=== PATIENT | female | born 1945 | race Caucasian/White ===

== ENCOUNTER → 2023-12-29 15:15 | Outpatient (REF) | payer MEDICARE, OTHER, SELFPAY | LOC: HWWDC 15:15 | PROVIDERS: ATTENDING PHYSICIAN Internal Medicine | DX: Z12.31 Encounter for screening mammogram for malignant neoplasm of breast (principal) | CPT/HCPCS: 77063; 77067 ==

== ENCOUNTER 2024-01-10 16:31 | Inpatient (IN) | payer MEDICARE, OTHER, SELFPAY ==
[2024-01-10] VITALS (10 sets, daily range): BP systolic 111–145; BP diastolic 59–90; BMI 26.6; BMI 24.9
--- NOTE | 2024-01-10 12:45 | ED.GENMED ---
History of Present Illness
General
Chief Complaint: Dizziness
Source: patient and ambulance crew
Exam Limitations: none
Time Seen by Provider: 01/10/24 12:32
Nursing documentation reviewed up to this point in time: agreed with
Travel History
Have you had any contact with someone who has COVID-19?: Unable to Answer
Do you have any symptoms of coronavirus? Fever > 100 degrees, chills, cough, shortness of breath, sore throat, loss of taste or smell, muscle aches, or headache?: Unable to Answer
History of Present Illness
History of Present Illness:
78-year-old female with a past medical history of hypertension, hyperlipidemia, atrial fibrillation on Eliquis (sees Dr. Greenberg for cardiology) who presents to the emergency room from home where she lives independently in the community; she
presents via EMS for evaluation after syncopal event. Patient says that she has had mild URI symptoms for the past 2 or 3 days that she describes 'scratchy' throat, mild cough and congestion. She says that this morning she woke up and had profuse
nonbloody diarrhea x 5-10 episodes liquid stool. She says that just prior to arrival she was on the toilet having another BM and she began to feel very dizzy and she passed out. She says that she does not believe she sustained any serious injuries
but cannot really remember if she hit her head. She says she was too weak to get up and called EMS. Per EMS on arrival she had a normal blood pressure but was bradycardic in the 40s. She was given atropine x 1 mg from EMS for bradycardia. Heart
rate improved on the way to the hospital. Blood pressure stable. Here in the ED she says she has continued URI symptoms as above. She says she has had some mild cramping associated with her diarrhea this morning but no serious abdominal pain.
She has had some nausea but denies any vomiting today. She denies any chest pain. Denies any shortness of breath. She denies any fevers or chills. She denies any other complaints. She is on Eliquis for A-fib. She does not take any calcium
channel blockers or beta-blockers she says.
Past History
Past History
ED Past Medical History: Arrthythmia (Atrial fibrillation), GERD, Hypercholesterolemia and Other (benign positional vertigo)
ED Past Surgical History: Other (hernia, bladder sling)
Social History
Tobacco: Former smoker
Alcohol: None
Drug: None
Personal:
Living: with family
Employment: Employed
Family History
Family History: Other
Review of Systems
Review of Systems
All Other Systems: ROS reviewed and negative except as documented in HPI and ROS
Constitutional: Reports fatigue; Denies fever or chills
EENT: Reports sore throat and runny nose
Respiratory: Reports cough; Denies trouble breathing
Cardiac: Reports syncope; Denies chest pain, diaphoresis or palpitations
ABD/GI: Reports abdominal pain, nausea and diarrhea; Denies vomiting or bloody stools
: Denies dysuria, frequency or flank pain
Musculoskeletal: Denies neck pain or back pain
Neurological: Reports dizzy; Denies headache, weakness or numbness
Phy Exam
Physical Exam
Physical Exam:
General: Awake, alert, oriented x3; no acute distress
Head: Normocephalic, atraumatic
Eyes: Conjunctiva normal, EOMI
Throat: Airway intact, handling secretions
Neck: Trachea midline, no tenderness in the cervical spine
Back: No signs of trauma to the back or flank and no tenderness in thoracic lumbar spine
Lungs: Clear to auscultation bilaterally, no wheezing, rales, rhonchi
Heart: Regular rate and rhythm, no murmurs, gallops, or rubs; no chest wall tenderness
Abd: Soft, non distended, minimally tender across lower abdomen
Neuro: Cranial nerves grossly intact, speech fluid
Skin: no rash
Extremities: Atraumatic, no edema in the lower extremities; she has good pulses in all extremities; she can move all extremities through full range of motion without discomfort
Scores
Heart Failure Risk
Heart Failure Risk Score: Not Applicable
Heart Score for Chest Pain Patients
STEMI patient?: Not applicable
Withdrawal Assessment of Alcohol
Withdrawal Assessment Completed?: Not applicable
Course
Orders/Labs/Results
Orders:
Orders
01/10/24 12:37
ECG [Electrocardiogram (*1)] Urgent
Reason for Study: Other
Other Reason for Exam: tachycardia
EKG- Treatment ONCE
01/10/24 12:44
Electrocardiogram (*1) Urgent
Reason for Study: Syncope
CT Head W/o Iv Contrast Urgent
Comment:
Reason For Exam: syncope and collapse, ?head strike, on Eliquis
EKG- Treatment ONCE
01/10/24 12:45
0.9% Sodium Chloride 1000 ml [Nss] 1,000 ml IV BOLUS
01/10/24 12:52
STOOL [C difficile Antigen & Toxins] Urgent
RENE Source: Feces/Stool
Specimen Description:
Stool Culture Urgent
RENE Source: Feces/Stool
Specimen Description:
01/10/24 12:53
COVID-19 Antigen Urgent
Source: Nasal Swab
Complete Blood Count/With Diff Urgent
Comprehensive Metabolic Panel Urgent
Lipase Urgent
Influenza A+B Rapid Molecular Urgent
RENE Source: Nasal Swab
Specimen Description:
Abnormal Lab Results
01/10/24
12:53
RBC 3.75 L 10^6/uL
(4.20-5.40)
Hgb 11.8 L g/dL
(12.0-16.0)
Hct 34.4 L %
(37.0-47.0)
MCH 31.5 H pg
(27.0-31.0)
Absolute Neuts (auto) 6.6 H 10^3/uL
(1.4-6.5)
Absolute Monos (auto) 1.0 H 10^3/uL
(0.1-0.6)
Lymphocytes % 14.5 L %
(20.5-51.1)
Monocytes % 10.9 H %
(1.7-9.3)
Sodium 132 L mmol/L
(135-145)
BUN 21 H mg/dl
(7-17)
Total Bilirubin 1.4 H mg/dl
(0.2-1.3)
01/10/24 12:53
01/10/24 12:53
Vital Signs
Initial and Last Documented VS:
Initial Vital Signs
BP
143/90
01/10/24 12:38
Last Documented Vital Signs
Pulse Resp BP Pulse Ox
63 17 135/67 96
01/10/24 14:15 01/10/24 14:15 01/10/24 14:00 01/10/24 14:15
MDM/Problems Addressed
Differential Diagnosis Includes:
Vasovagal episode, postural syncope, dehydration, electrolyte derangement, anemia, dysrhythmia/bradycardia, valvular disease
MDM/Problems Addressed:
78-year-old female presents to the emergency room for evaluation of syncopal event and collapse in the setting of recent URI symptoms and profuse diarrhea this morning. She was bradycardic for EMS and received 1 mg of atropine prehospital. Vital
signs are normal here in the emergency room. Physical exam as above. Plan to place an IV check labs including CBC and CMP. Will send viral swabs. Will check stat EKG. Will send for CT head. Will provide some fluids. Send stool studies if able
to produce sample. Monitor closely reassess after the above.
Labs reviewed: CBC shows marginal anemia stable, CMP no clinically significant abnormalities. COVID and flu swabs negative. CT head negative for any acute pathology. Patient has remained sinus rhythm with heart rate in the 60s throughout her ED
visit. She has not had additional diarrhea here. Nevertheless given that she does live alone and had significant bradycardia to the point of receiving atropine from EMS will observe on telemetry overnight. Discussed with hospitalist for admission.
Chronic conditions affecting care:
A-fib on Eliquis which complicates her fall
*Radiology
Radiology exam reviewed: radiology read reviewed
*Pulse Oximetry
Patient hypoxic: no
*EKG
Interpreted by ED Provider?: Yes
Heart Rate: 67
Rate: normal
Rhythm: sinus
[place]: normal axis
Interval: normal interval and normal QT interval
QRS Pattern: normal QRS
Ischemia: no ischemia
*Critical Care Note
Total Time (30-74mins, 75-104mins- exclusive of procedures): Not Applicable
Data Reviewed
Review of Other/Old Records Reveals: Labs and Records
Source: patient and ambulance crew
Patient Management
Social determinants of health affecting care: Living situation (Lives alone)
Discussion with other providers: Hospitalist (Discussed with hospitalist)
Escalation/DeEscalation of care consider admission/obs:
Admission indicated
ED Attending Note
-
Portions of this chart may have been created with voice recognition software.� Occasional wrong word or��sound alike� substitutions may have occurred due to the inherent limitations of voice recognition software.
Discharge Plan
Departure
Patient Disposition: Admit
Date of Disposition: 01/10/24
Time of Disposition: 15:37
Admit to doctor: Justina
Presentation/result/management discussed w/ accepting MD/DO: Hospitalist
Discharge Problem:
Syncope, Diarrhea
Prescriptions:
No Action
meclizine 12.5 MG tablet
12.5 mg PO DAILYPRN PRN (Reason: dizziness)
ascorbic acid (vitamin C) [Vitamin C] 500 MG tablet
1,000 mg PO DAILY
fish oil-dha-epa 1 EACH capsule
2 ea PO DAILY
cholecalciferol (vitamin D3) 1,000 UNITS tablet
1,000 units PO DAILY
multivitamin with folic acid [Tab-A-Tripp] 1 TABLET tablet
1 tab PO DAILY
acetaminophen [Tylenol Extra Strength] 500 MG tablet
500 mg PO Q4HPRN PRN (Reason: mild pain) Qty: 1 0RF
alum-mag hydroxide-simeth [Mag-Al Plus] 30 ML suspension
30 ml PO QIDPRN PRN (Reason: indigestion) Qty: 1 0RF
ibuprofen 200 MG tablet
200 mg PO Q4HPRN PRN (Reason: pain/ fever)
ondansetron 4 MG tablet,disintegrating
4 mg PO TIDPRN PRN (Reason: nausea) Qty: 9 0RF
aspirin 81 mg Tablet,Delayed Release (Dr/Ec)
81 mg PO DAILY Qty: 30 0RF
ofloxacin 0.3 % drops
10 drp otic (ear) DAILY 7 Days Qty: 5 0RF
Rx Instructions:
L ear
Metamucil 3.4 gram/5.4 gram powder
1 tbsp PO DAILY Qty: 660 0RF
Preparation H(pe,cb) 0.25-88.44 % suppository
1 supp [place] DAILY PRN (Reason: hemorrhoids) Qty: 12 0RF
Referrals:
Graham Concepcion MD [Family Provider] -
Interventions
Interventions:
*General Assessment Last Done: 01/10/24 12:47
*Neglect/Abuse Screening Last Done: 01/10/24 12:47
*ED COVID-19 Vaccine History Last Done: 01/10/24 12:46
ED- Neurological Assessment Last Done: 01/10/24 12:49
ED- Cardiac Assessment Last Done: 01/10/24 12:49
ED Swallowing Screen Last Done: 01/10/24 13:07
Discharge Date and Time
Print Language: COMORAN
[2024-01-10] MEDS: NSS 1000 IV ×2 (12:58→18:11)
[2024-01-10 13:18] LABS: % Basophils 0.4 % (0-2); % Eosinophils 0.8 % (0-6); % Immature Granulocytes 0.3 % (0-0.5); % Lymphocytes 14.5 % (20.5-51.1); % Monocytes 10.9 % (1.7-9.3); % Neutrophils 73.1 % (42.2-75.2); Absolute Eosinophils 0.1 10^3/uL (0-0.7); Absolute Lymphocytes 1.3 10^3/uL (1.2-3.4); Absolute Neutrophils 6.6 10^3/uL (1.4-6.5); Hematocrit 34.4 % (37.0-47.0); Hemoglobin 11.8 g/dL (12.0-16.0); Mean Corp Hgb Conc. 34.3 g/dL (33.0-37.0); Mean Corpuscular Hgb 31.5 pg (27.0-31.0); Mean Corpuscular Volume 91.7 fL (81.0-99.0); Mean Platelet Volume 9.6 fL (7.4-10.4); Nucleated Red Blood Cells % 0 %; Platelet Count 181 10^3/uL (130-400); Red Blood Cell Count 3.75 10^6/uL (4.20-5.40); Red Cell Dist. Width 12.6 % (11.5-14.5)
[2024-01-10 13:22] LABS: COVID-19 Antigen Negative (Negative)
[2024-01-10 13:30] LABS: ALT (SGPT) 14 U/L (0-35); AST (SGOT) 25 U/L (14-36); Albumin 3.7 g/dl (3.5-5.0); Alkaline Phosphatase 98 U/L (38-126); Blood Urea Nitrogen 21 mg/dl (7-17); Calcium 9.2 mg/dl (8.4-10.2); Carbon Dioxide 27 mmol/L (22-30); Chloride 103 mmol/L (98-107); Estimated Creatinine Clearance 48 ml/min; Glucose 94 mg/dl (70-99); Lipase 84 U/L (23-300); Potassium 4.2 mmol/L (3.5-5.1); Sodium 132 mmol/L (135-145); Total Bilirubin 1.4 mg/dl (0.2-1.3); Total Protein 6.5 g/dl (6.3-8.2); eGFR > 60.00
--- NOTE | 2024-01-10 15:38 | HPS.HSE ---
Family Physician
-
Family Physician: Graham Concepcion
Chief Complaint
-
Syncopal episode at home
History of Present Illness
78 years old female came in by ambulance. Patient was having loose stools a sitting on the toilet, she felt dizzy and she suddenly passed out. Patient had symptoms of cold in the last 2 days. COVID test was negative. Per EMS on arrival, she had
normal blood pressure but was bradycardic in the 40s. She was given atropine 1 mg. Her heart rate improved. In the emergency room, her heart rate was around 60. Blood pressure was 143/90. She denies chest pain or shortness of breath. She takes
Eliquis for atrial fibrillation. She had history of bradycardia and metoprolol was discontinued. She reports allergy/cold symptoms. She took Claritin for allergy this morning. Patient also reported frequency and dysuria
Medical History
Past Medical History
Past Medical History: Reports Other (Atrial fibrillation, constipation, hypertension, hyperlipidemia, osteoporosis, vertigo)
Past Surgical History: Reports Other (No recent major surgery)
Social History
Tobacco: Non-smoker
Alcohol: None
Drug: None
Personal: Single
Living: Alone
Employment: Employed
Family History
Family History: CAD, Hypertension and Other (No history of diabetes. Her 2 cousins of breast cancer)
Allergies / Home Medications
Allergies reflects when Allergies were last updated in [facility]
Home Medications with original date entered in [facility]
Allergy/Medication List:
Allergies
Allergy/AdvReac Type Severity Reaction Status Date / Time
codeine Allergy Severe Verified 01/10/24 14:00
Nausea
Sulfa (Sulfonamide Allergy Tongue Verified 01/10/24 14:00
Antibiotics) Swelling
tetracycline [Tetracycline] Allergy Extreme Verified 01/10/24 14:00
stomach
pain
Home Medications
ascorbic acid (vitamin C) 500 mg tablet (Vitamin C) 1,000 mg PO DAILY Supplement 04/13/14
cholecalciferol (vitamin D3) 25 mcg (1,000 unit) tablet 1,000 units PO DAILY Supplement 11/19/21
multivitamin with folic acid 400 mcg tablet (Tab-A-Tripp) 1 tab PO DAILY Supplement 11/19/21
apixaban 5 mg tablet 5 mg PO BID 01/10/24
loratadine 10 mg tablet (Claritin) 10 mg PO DAILY 01/10/24
meclizine 25 mg tablet 25 mg PO TID PRN dizziness 01/10/24
omeprazole 40 mg capsule,delayed release 40 mg PO DAILY PRN gi upset 01/10/24
Review of Systems
-
History Source: Patient
A 12 point ROS was completed and negative except as noted: Yes
Constitutional: Denies Fever or Chills
EENT: Reports Runny Nose and Other (Postnasal drip); Denies Sore Throat
Respiratory: Denies Cough or Trouble Breathing
Cardiac: Denies Chest Pain or Palpitations
Abdomen/GI: Denies Abdominal Pain
: Reports Dysuria and Frequency; Denies Bleeding
Musculoskeletal: Denies Joint Pain or Muscle Stiffness
Skin: Denies Rash
Neurological: Denies Headache or Numbness
Endocrine: Denies Temp Intolerance
Hematologic/Lymphatic: Denies Bruising
Psych: Denies Panic Disorder
Physical Exam
Vital Signs
Vital Signs
Pulse Resp BP Pulse Ox
63 17 135/67 96
01/10/24 14:15 01/10/24 14:15 01/10/24 14:00 01/10/24 14:15
Physical Exam
General: Well Developed, No Apparent Distress and Comfortable
HEENT: Moist mucous membranes and Atraumatic
Respiratory: Clear
Cardiac: S1/S2 and Regular Rhythm
GI: Soft, Non Tender and Non Distended
Rectal: No Maroon Stools
Genito-urinary: No costovertebral tender
Musculoskeletal: No Clubbing, No Cyanosis and No Edema
Skin: Warm and Dry; No Jaundice
Neuro: AO x 3 and Nonfocal/grossly intact
Psych: Calm and Intact Judgment/Insight
Laboratory Results
-
01/10/24 12:53
01/10/24 12:53
Laboratory Results
Total Bilirubin 1.4 mg/dl (0.2-1.3) H 01/10/24 12:53
AST 25 U/L (14-36) 01/10/24 12:53
ALT 14 U/L (0-35) 01/10/24 12:53
Alkaline Phosphatase 98 U/L (38-126) 01/10/24 12:53
Lipase 84 U/L (23-300) 01/10/24 12:53
Impression/Plan
-
78 years old female presented with syncopal episode
Syncopal episode
Likely vasovagal precipitated by bowel movement and ongoing cold symptoms
patient denied chest pain, palpitation, headache. She has history of vertigo. Mild evidence of dehydration with high BUN and hyponatremia, will give IV fluid.
Will monitor the patient on heart monitor for 24 hours. Continue Eliquis. No head trauma. Head scan showed no acute intracranial hemorrhage.
PT/OT. Monitor vital signs and orthostatic vitals.
# Cold symptoms, acute rhinitis. Negative COVID and influenza.
Will give as needed allergy medicine for postnasal drip, Tessalon for dry cough.
No hypoxia. Lung examination is clear.
# History of frequency and dysuria. Follow-up with urine test, no fever, no leukocytosis.
# Hyponatremia, mild, will give IV fluid
# History of paroxysmal atrial fibrillation. Continue Eliquis. Monitor on telemetry.
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 Unchanged per CT finding.
# DVT prophylaxis
Total time spent to see the patient, examine the patient on the floor, review data and lab results, discuss treatment plan with patient, ER doctor, nursing staff around 75 minutes.
[2024-01-10 15:53] LABS: Urine Albumin Negative (Neg - Trace); Urine Bilirubin Negative (Negative); Urine Character Clear (Clear); Urine Color Yellow; Urine Glucose Negative (Negative); Urine Ketone Negative (Negative); Urine Leukocyte 2+ (Negative); Urine Nitrite Negative (Negative); Urine Occult Blood Negative (Negative); Urine Urobilinogen Negative (Neg - 1+)
[2024-01-10 16:04] LABS: Urine Bacteria Few (Negative); Urine Red Blood Cell 0-2 /HPF (0-2); Urine Urothelial Cell 0-2 /LPF (FEW)
[2024-01-10 17:17] LABS: Troponin I < 0.012 ng/ml
[2024-01-10] MEDS: ELIQUIS 5 MG PO (20:25)
[2024-01-10] MEDS: TYLENOL 1000 MG PO (20:26)
[2024-01-11] VITALS (7 sets, daily range): BP systolic 124–160; BP diastolic 68–96
[2024-01-11] MEDS: NSS 1000 IV (03:54)
[2024-01-11] MEDS: TYLENOL 1000 MG PO ×2 (03:54→19:29)
[2024-01-11] MEDS: ELIQUIS 5 MG PO ×2 (07:55→19:27)
--- NOTE | 2024-01-11 11:12 | W.PN.HOSP.TC ---
Addendum entered and electronically signed by Lisa Horn MD 01/11/24 14:41:
Addendum
With recent history of cold-like symptoms, and loose stools
Possible viral gastroenteritis
Currently, patient is tolerating good oral intake. C. difficile ordered
Will follow-up
End
Original Note:
Today's Communication/Plan
-
.
Assessment / Plan
Assessment / Plan
Physical Exam
General: Well Developed, No Apparent Distress and Comfortable
HEENT: Moist mucous membranes and Atraumatic
Respiratory: Clear
Cardiac: S1/S2 and Regular Rhythm
GI: Soft, Non Tender and Non Distended
Rectal: No Maroon Stools
Genito-urinary: No costovertebral tender
Musculoskeletal: No Clubbing, No Cyanosis and No Edema
Skin: Warm and Dry; No Jaundice
Neuro: AO x 3 and Nonfocal/grossly intact
Psych: Calm and Intact Judgment/Insight
78 years old female presented with syncopal episode
#Syncopal episode
Likely vasovagal precipitated by bowel movement and ongoing cold symptoms
patient denied chest pain, palpitation, headache. She has history of vertigo. Mild evidence of dehydration with high BUN and hyponatremia, s/p IV fluid.
c/w monitoring the patient on heart monitor. Continue Eliquis. No head trauma. Negative troponin. Head scan showed no acute intracranial hemorrhage.
PT/OT. Monitor vital signs and orthostatic vitals.
# Hx of abd cramps and loose stool this morning an dsame at home
No diarrhea over night per nursing
will check C diff
# Cold symptoms, acute rhinitis. Negative COVID and influenza.
c/w as needed allergy medicine for postnasal drip, Tessalon for dry cough.
No hypoxia. Lung examination is clear.
# History of frequency and dysuria. Follow-up with urine test, no fever, no leukocytosis.
# Hyponatremia, mild, will give IV fluid
# History of paroxysmal atrial fibrillation. Continue Eliquis. Monitor on telemetry.
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 Unchanged per CT finding.
# DVT prophylaxis
Total time spent to see the patient, examine the patient on the floor, review data and lab results, discuss treatment plan with patient, nursing staff around 55 minutes.
Anticipated Discharge: Within 24 hours
Subjective/Interval History
-
Date of Service: January 11, 2024
No chest pain
No sob
No abd pain
has abd cramps and loose stool this morning
Objective Data
-
Vital Signs:
Vital Signs
Temp Pulse Resp BP Pulse Ox
97.5 F 58 18 144/71 96
01/11/24 11:00 01/11/24 11:00 01/11/24 11:00 01/11/24 11:00 01/11/24 11:00
--- NOTE | 2024-01-11 12:19 | PTOTSP ---
Patient demonstrates safe and independent mobility, no skilled PT needs at this time.
[2024-01-11] MEDS: NSS IV (12:55)
--- NOTE | 2024-01-11 15:12 | PTOTSP ---
Pt is functionally independent in room for ADLs and functional transfers/mobility. OT to sign off at this time.
[2024-01-11] MEDS: ZYRTEC 10 MG PO (19:27)
[2024-01-12] VITALS (7 sets, daily range): BP systolic 134–157; BP diastolic 65–96; PULSE 105–113
[2024-01-12] MEDS: TYLENOL 1000 MG PO ×3 (05:17→20:34)
[2024-01-12 06:00] LABS: Hematocrit 37.9 % (37.0-47.0); Hemoglobin 13.1 g/dL (12.0-16.0); Mean Corp Hgb Conc. 34.6 g/dL (33.0-37.0); Mean Corpuscular Volume 92.4 fL (81.0-99.0); Mean Platelet Volume 9.8 fL (7.4-10.4); Platelet Count 203 10^3/uL (130-400); Red Cell Dist. Width 12.4 % (11.5-14.5); White Blood Cell Count 10.7 10^3/uL (4.8-10.8)
[2024-01-12 06:25] LABS: Blood Urea Nitrogen 20 mg/dl (7-17); Calcium 9.4 mg/dl (8.4-10.2); Carbon Dioxide 23 mmol/L (22-30); Chloride 107 mmol/L (98-107); Estimated Creatinine Clearance 43 ml/min; Glucose 90 mg/dl (70-99); Potassium 4.1 mmol/L (3.5-5.1); Sodium 137 mmol/L (135-145); eGFR > 60.00
[2024-01-12] MEDS: ELIQUIS 5 MG PO ×2 (10:43→20:29)
--- NOTE | 2024-01-12 12:43 | CM ---
Met with pt at bedside
Lives alone in a 2 story home with FF set up
Independent with ADL's, shopping, cooking
DME - denies usw/in home
SNF - denies past
HH - denies past
Has ride at d/c
PCP - Dr Gaby Concepcion
Pharm - [facility]
Cleared by PT for d/c needs
Plan - anticipate home no needs
[2024-01-12] MEDS: STERILE WATER FOR INJECTION 10 ML IV (13:15)
[2024-01-12] MEDS: ROCEPHIN 1000 MG IV (13:16)
--- NOTE | 2024-01-12 13:20 | W.PN.HOSP.TC ---
Today's Communication/Plan
-
start abx
f/u cultures
stop meclizine
Assessment / Plan
Assessment / Plan
Physical Exam
General: Well Developed, No Apparent Distress and Comfortable
HEENT: Moist mucous membranes and Atraumatic
Respiratory: Clear
Cardiac: S1/S2 and Regular Rhythm
GI: Soft, Non Tender and Non Distended
Rectal: No Maroon Stools
Genito-urinary: No costovertebral tender
Musculoskeletal: No Clubbing, No Cyanosis and No Edema
Skin: Warm and Dry; No Jaundice
Neuro: AO x 3 and Nonfocal/grossly intact
Psych: Calm and Intact Judgment/Insight
78 years old female presented with syncopal episode
#Syncopal episode
Likely vasovagal precipitated by bowel movement and ongoing cold symptoms although patient has UTI symptoms and may be contributing factor
-c/w monitoring the patient on heart monitor. Continue Eliquis. No head trauma. Negative troponin. Head scan showed no acute intracranial hemorrhage.
-Orthostatics negative
-Diarrhea resolved
-PT/OT. Monitor vital signs and orthostatic vitals.
-Treat UTI
# Hx of abd cramps and loose stool this morning and same at home
No diarrhea over night per nursing
resolved
-most likely viral gastroenteritis
# Cold symptoms, acute rhinitis. Negative COVID and influenza.
c/w as needed allergy medicine for postnasal drip, Tessalon for dry cough.
No hypoxia. Lung examination is clear.
# UTI
-start Ceftriaxone
F/u cultures
# Hyponatremia, mild, will give IV fluid
-resolved
# History of paroxysmal atrial fibrillation.
-Continue Eliquis.
- Monitor on telemetry.
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
- Unchanged per CT finding.
# DVT prophylaxis
Anticipated Discharge: Within 24 hours
Subjective/Interval History
-
Date of Service: January 12, 2024
burning with urination
Objective Data
-
Labs:
Laboratory Results
01/12/24
05:32
WBC 10.7
Hgb 13.1
Hct 37.9
Plt Count 203
Sodium 137
Potassium 4.1
Chloride 107
Carbon Dioxide 23
BUN 20 H
Creatinine 0.9
Glucose 90
Calcium 9.4
Vital Signs:
Vital Signs
Temp Pulse Resp BP Pulse Ox
98.1 F 68 17 137/69 96
01/12/24 11:00 01/12/24 11:00 01/12/24 11:00 01/12/24 11:00 01/12/24 11:00
I&O
01/11/24 01/12/24 01/13/24
06:59 06:59 06:59
Intake Total 600 / 600
Balance 600 / 600
Review of Systems
-
History Source: Patient
All other systems: Not reviewed unless documented
Physical Exam
-
General: Well Developed, Well Nourished, No Apparent Distress, Comfortable and Conversant; Negative Respiratory Distress
HEENT: Normocephalic, Atraumatic, Nose Appears Normal and Ears Appear Normal; Negative Oxygen
Respiratory: Clear to Auscultation and Non Labored Respirations; Negative Accessory Resp Muscle Use
Cardiac: Regular Rhythm and S1/S2
GI: Soft, Nontender, Nondistended and Normal Bowel Sounds
Musculoskeletal: Normal Gait & Station
Skin: Warm and Dry
Neuro: Awake, Alert, Oriented, AO x 3 and No Motor Deficits
Psych: Calm and Intact Judgement/Insight
Data Reviewed
-
CT Scan: Image personally visualized and interpreted and Report Reviewed by me
Labs: Labs Reviewed by me
--- NOTE | 2024-01-12 18:39 | PTCARENOTE ---
Patient OOb in room with steady gait. Patient has not had any bowel movements. Patient c/o slight burning with urination. UA with gram neg bacilli, physisicn notfoed, order for Rocephin. Patient made aware.
[2024-01-12] MEDS: ZYRTEC 10 MG PO (20:34)
[2024-01-13 03:05] VITALS: BP 139/76
[2024-01-13 06:17] LABS: Hemoglobin 12.5 g/dL (12.0-16.0); Mean Corp Hgb Conc. 34.7 g/dL (33.0-37.0); Mean Corpuscular Hgb 31.9 pg (27.0-31.0); Mean Corpuscular Volume 91.8 fL (81.0-99.0); Mean Platelet Volume 9.5 fL (7.4-10.4); Platelet Count 200 10^3/uL (130-400); Red Blood Cell Count 3.92 10^6/uL (4.20-5.40); Red Cell Dist. Width 12.6 % (11.5-14.5); White Blood Cell Count 8.7 10^3/uL (4.8-10.8)
[2024-01-13 06:43] LABS: Blood Urea Nitrogen 18 mg/dl (7-17); Calcium 9.5 mg/dl (8.4-10.2); Carbon Dioxide 26 mmol/L (22-30); Chloride 102 mmol/L (98-107); Estimated Creatinine Clearance 48 ml/min; Glucose 90 mg/dl (70-99); Potassium 4.2 mmol/L (3.5-5.1); Sodium 136 mmol/L (135-145); eGFR > 60.00
[2024-01-13 07:00] VITALS: BP 159/84
[2024-01-13] MEDS: ELIQUIS 5 MG PO (09:09)
[2024-01-13] MEDS: TYLENOL 1000 MG PO (09:10)
[2024-01-13 10:16] VITALS: BP 145/117
--- NOTE | 2024-01-13 11:03 | W.PN.HOSP.TC ---
Addendum entered and electronically signed by Arash Rubio MD 01/13/24 16:41:
[id number]
Original Note:
Today's Communication/Plan
-
Augmentin to complete 5 days of abx
f/u pcp, gi outpatient
Assessment / Plan
Assessment / Plan
Physical Exam
General: Well Developed, No Apparent Distress and Comfortable
HEENT: Moist mucous membranes and Atraumatic
Respiratory: Clear
Cardiac: S1/S2 and Regular Rhythm
GI: Soft, Non Tender and Non Distended
Rectal: No Maroon Stools
Genito-urinary: No costovertebral tender
Musculoskeletal: No Clubbing, No Cyanosis and No Edema
Skin: Warm and Dry; No Jaundice
Neuro: AO x 3 and Nonfocal/grossly intact
Psych: Calm and Intact Judgment/Insight
78 years old female presented with syncopal episode
#Syncopal episode
Likely vasovagal precipitated by bowel movement and ongoing cold symptoms although patient has UTI symptoms and may be contributing factor
-c/w monitoring the patient on heart monitor. Continue Eliquis. No head trauma. Negative troponin. Head scan showed no acute intracranial hemorrhage.
-Orthostatics negative
-Diarrhea resolved
-PT/OT. Monitor vital signs and orthostatic vitals.
-Treat UTI
# Hx of abd cramps and loose stool this morning and same at home
No diarrhea over night per nursing
resolved
-most likely viral gastroenteritis
-FF/u GI outpatient
# Cold symptoms, acute rhinitis. Negative COVID and influenza.
c/w as needed allergy medicine for postnasal drip, Tessalon for dry cough.
No hypoxia. Lung examination is clear.
# UTI, Klebsiella Pneumoniae
-Ceftriaxone - switch to Augmentin to complete 5 day course of abx
# Hyponatremia, mild, will give IV fluid
-resolved
# History of paroxysmal atrial fibrillation.
-Continue Eliquis.
- Monitor on telemetry.
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
- Unchanged per CT finding.
# DVT prophylaxis
More than 30 minutes spent in discharge including
Final examination of the patient
Summarizing hospital stay
Instructions for continuing care to all relevant caregivers
Preparation of discharge records, prescriptions, and referral forms
Total time spent (35 in minutes):
Anticipated Discharge: Today
Subjective/Interval History
-
Date of Service: January 13, 2024
feeling better, dysuria improved
Objective Data
-
Labs:
Laboratory Results
01/13/24
05:53
WBC 8.7
Hgb 12.5
Hct 36.0 L
Plt Count 200
Sodium 136
Potassium 4.2
Chloride 102
Carbon Dioxide 26
BUN 18 H
Creatinine 0.8
Glucose 90
Calcium 9.5
Vital Signs:
Vital Signs
Temp Pulse Resp BP Pulse Ox
98.6 F 85 17 145/117 96
01/13/24 07:00 01/13/24 10:16 01/13/24 07:00 01/13/24 10:16 01/13/24 07:00
I&O
01/12/24 01/13/24 01/14/24
06:59 06:59 06:59
Intake Total 600 / 600 1160 / 1160
Balance 600 / 600 1160 / 1160
Review of Systems
-
History Source: Patient
All other systems: Not reviewed unless documented
Physical Exam
-
General: Well Developed, Well Nourished, No Apparent Distress, Comfortable and Conversant; Negative Respiratory Distress
HEENT: Normocephalic, Atraumatic, Nose Appears Normal and Ears Appear Normal; Negative Oxygen
Respiratory: Clear to Auscultation and Non Labored Respirations; Negative Accessory Resp Muscle Use
Cardiac: Regular Rhythm and S1/S2
GI: Soft, Nontender, Nondistended and Normal Bowel Sounds
Musculoskeletal: Normal Gait & Station
Skin: Warm and Dry
Neuro: Awake, Alert, Oriented, AO x 3 and No Motor Deficits
Psych: Calm and Intact Judgement/Insight
--- NOTE | 2024-01-13 11:07 | W.DS.TRANS ---
DC Summary - Help Desk Analyst
-
Discharge Instructions:
Sleep Apnea Risk Low
Discharge Diagnosis/Procedures #Syncopal episode
# UTI
#URI
#Diarrhea
Diet Low Fiber
Activity As tolerated
Instructions:
Stand-Alone Forms:
Changes to Home Medications: Yes
Discharge Medications:
DC Medications w/original date entered in [facility]
ascorbic acid (vitamin C) 500 mg tablet (Vitamin C) 1,000 mg PO DAILY Supplement 04/13/14
cholecalciferol (vitamin D3) 25 mcg (1,000 unit) tablet 1,000 units PO DAILY Supplement 11/19/21
multivitamin with folic acid 400 mcg tablet (Tab-A-Tripp) 1 tab PO DAILY Supplement 11/19/21
apixaban 5 mg tablet 5 mg PO BID Blood Clot Prevention/Tx 01/10/24
loratadine 10 mg tablet (Claritin) 10 mg PO DAILY Allergies 01/10/24
omeprazole 40 mg capsule,delayed release 40 mg PO DAILY PRN gi upset 01/10/24
amoxicillin 875 mg-potassium clavulanate 125 mg tablet 1 tab PO Q12H 4 days #8 tabs 01/13/24
Home Medication Changes
amoxicillin 875 mg-potassium clavulanate 125 mg tablet 1 tab PO Q12H 4 days #8 tabs 01/13/24
Pending Results: No
[2024-01-13 11:12] VITALS: BP 146/88
[2024-01-13] MEDS: STERILE WATER FOR INJECTION 10 ML IV (12:00)
[2024-01-13] MEDS: ROCEPHIN 1000 MG IV (12:00)
== END 2024-01-13 14:52 | disposition home or self-care (01) | DRG 392 ==
LOC: 3 WEST ACU 16:31
PROVIDERS: ADMITTING PHYSICIAN Internal Medicine; ATTENDING PHYSICIAN Internal Medicine; EMERGENCY PHYSICIAN Emergency Medicine; FAMILY PHYSICIAN Internal Medicine
DX: A08.4 Viral intestinal infection, unspecified (principal); E87.1 Hypo-osmolality and hyponatremia; N39.0 Urinary tract infection, site not specified; I10 Essential (primary) hypertension; I48.0 Paroxysmal atrial fibrillation; J06.9 Acute upper respiratory infection, unspecified; M81.0 Age-related osteoporosis without current pathological fracture; I25.10 Atherosclerotic heart disease of native coronary artery without angina pectoris; K21.9 Gastro-esophageal reflux disease without esophagitis; E86.0 Dehydration; D32.9 Benign neoplasm of meninges, unspecified; E78.00 Pure hypercholesterolemia, unspecified; B96.1 Klebsiella pneumoniae [K. pneumoniae] as the cause of diseases classified elsewhere; Z79.01 Long term (current) use of anticoagulants; Z87.891 Personal history of nicotine dependence; Z11.52 Encounter for screening for COVID-19; Z79.82 Long term (current) use of aspirin; Z88.1 Allergy status to other antibiotic agents; Z88.5 Allergy status to narcotic agent; Z88.2 Allergy status to sulfonamides
CPT/HCPCS: 70450; 80048; 80053; 81003; 81015; 83690; 84484; 85025; 85027; 87045; 87046; 87077; 87086; 87186; 87427; 87502; 87798; 87811; 93005; 96360; 97162; 99285

== ENCOUNTER 2024-03-07 15:33 | Emergency (ER) | payer MEDICARE, OTHER, SELFPAY ==
[2024-03-07] VITALS (12 sets, daily range): BP systolic 98–158; BP diastolic 62–103; BMI 24.5
[2024-03-07 16:14] LABS: % Basophils 0.4 % (0-2); % Eosinophils 0.4 % (0-6); % Immature Granulocytes 0.3 % (0-0.5); % Monocytes 7.7 % (1.7-9.3); % Neutrophils 79.2 % (42.2-75.2); Absolute Lymphocytes 1.4 10^3/uL (1.2-3.4); Absolute Monocytes 0.9 10^3/uL (0.1-0.6); Hematocrit 38.2 % (37.0-47.0); Hemoglobin 12.9 g/dL (12.0-16.0); Mean Corp Hgb Conc. 33.8 g/dL (33.0-37.0); Mean Corpuscular Hgb 31.9 pg (27.0-31.0); Mean Corpuscular Volume 94.6 fL (81.0-99.0); Mean Platelet Volume 9.7 fL (7.4-10.4); Nucleated Red Blood Cells % 0 %; Platelet Count 163 10^3/uL (130-400); Red Blood Cell Count 4.04 10^6/uL (4.20-5.40); Red Cell Dist. Width 12.2 % (11.5-14.5); White Blood Cell Count 11.4 10^3/uL (4.8-10.8)
--- NOTE | 2024-03-07 16:15 | ED.GENMED ---
History of Present Illness
General
Chief Complaint: Musculo-Skeletal Complaint
Source: patient
Exam Limitations: none
Time Seen by Provider: 03/07/24 15:53
Travel History
Have you had any contact with someone who has COVID-19?: No
Do you have any symptoms of coronavirus? Fever > 100 degrees, chills, cough, shortness of breath, sore throat, loss of taste or smell, muscle aches, or headache?: No
History of Present Illness
History of Present Illness:
78-year-old female sudden onset of upper posterior back pain to the neck with some tightness in the neck anteriorly jaw pain and ear pain bilaterally. This feels moderately improved now. Started about an hour and a half ago. No chest pain or
shortness of breath. No diaphoresis. No syncope. No history of similar pain.
Past History
Past History
ED Past Medical History: Arrthythmia (Atrial fibrillation), GERD, HTN, Hypercholesterolemia and Other (benign positional vertigo)
ED Past Surgical History: Other (hernia, bladder sling)
Social History
Tobacco: Former smoker
Alcohol: None
Drug: None
Personal:
Living: with family
Employment: Employed
Family History
Family History: Other
Review of Systems
Review of Systems
All Other Systems: Not applicable
Constitutional: Denies fever
Respiratory: Reports no symptoms
Cardiac: Reports no symptoms
Phy Exam
Physical Exam
Physical Exam:
GENERAL: Alert and oriented in no apparent distress
EYE: Orbits normal.
NECK: Supple, no significant adenopathy. No carotid bruit. I question some mild left neck swelling but appears normal.
ENT: Pharynx without erythema
CARDIAC: Regular rate and rhythm without any obvious murmurs.
LUNGS: Clear breath sounds,normal
ABDOMEN: Soft, without focal tenderness or distention
NEUROLOGICAL: Alert and oriented , grossly non-focal. Speech normal. Cranial nerves II through XII intact.
SKIN: Warm and dry, no rash or lesion, no discoloration, skin intact.
MUSCULOSKELETAL: No edema,no deformity.Good color
PSYCH: Normal and appropriate interaction.
Course
Orders/Labs/Results
Orders:
Orders
03/07/24 15:41
EKG [Electrocardiogram (*1)] Urgent
Reason for Study: Other
Other Reason for Exam: nausea, neck pain
EKG- Treatment ONCE
03/07/24 16:02
Complete Blood Count/With Diff Urgent
Comprehensive Metabolic Panel Urgent
PT/INR [Prothrombin Time] Urgent
Troponin I Urgent
03/07/24 16:15
CT Head W/o Iv Contrast Urgent
Comment:
Reason For Exam: Sudden upper neck pain to the jaw with visual rowe
CT Neck Angio W/wo Iv Contrast Urgent
Comment:
Reason For Exam: Sudden upper neck pain to the jaw with visual rowe
03/07/24 17:04
Ondansetron Injectable [Zofran] 4 mg .ROUTE .STK-MED ONE
03/07/24 17:06
Ondansetron Injectable [Zofran] 4 mg IV NOW STA
03/07/24 18:40
Type+Screen Urgent
03/07/24 18:44
Prothrombin Complex(Pcc),Human [Kcentra] 3,234 unit Empty Viaflex Container 100 ml [Viaflex Empty Container] 120 ml IV NOW
03/07/24 18:51
Esmolol 2500 mg/250 ml [Brevibloc 2500 mg] 2,500 mg in 250 ml IV NOW
Initial dose in mcg/kg/min, then titrate:: 25
Titrate to keep:: SBP 100 - 120 mmHg
Titrate by mcg/kg/min:: 25-50 mcg/kg/min
Frequency of titrations (minutes):: 5
Maximum dose in mcg/kg/min:: 300
Begin to taper infusion when:: Remained at goal for 4hrs
Taper by mcg/kg/min:: 25-50 mcg/kg/min
Frequency of taper (minutes) if patient maintains goal:: 30
Taper to off?: Yes
If infusion off & no longer maintaining goal:: Contact Provider
03/07/24 19:16
Esmolol [Brevibloc] 15 mg IV NOW STA
Abnormal Lab Results
03/07/24
16:02
WBC 11.4 H 10^3/uL
(4.8-10.8)
RBC 4.04 L 10^6/uL
(4.20-5.40)
MCH 31.9 H pg
(27.0-31.0)
Absolute Neuts (auto) 9.0 H 10^3/uL
(1.4-6.5)
Absolute Monos (auto) 0.9 H 10^3/uL
(0.1-0.6)
Neutrophils % 79.2 H %
(42.2-75.2)
Lymphocytes % 12.0 L %
(20.5-51.1)
PT 17.5 H Sec
(11.4-14.6)
Sodium 134 L mmol/L
(135-145)
BUN 18 H mg/dl
(7-17)
Glucose 113 H mg/dl
(70-99)
Total Bilirubin 1.4 H mg/dl
(0.2-1.3)
03/07/24 16:02
03/07/24 16:02
Vital Signs
Initial and Last Documented VS:
Initial Vital Signs
Temp Pulse Resp BP Pulse Ox
97.9 F 64 18 98/74 97
03/07/24 15:36 03/07/24 15:36 03/07/24 15:36 03/07/24 15:36 03/07/24 15:36
Last Documented Vital Signs
Temp Pulse Resp BP Pulse Ox
97.9 F 63 16 158/79 98
03/07/24 15:36 03/07/24 19:20 03/07/24 19:15 03/07/24 19:20 03/07/24 19:06
MDM/Problems Addressed
Differential Diagnosis Includes:
Sudden onset of the symptoms. Differential would include cardiac. Clinically have a low suspicion however cardiac workup in progress. Aortic dissection or neck dissection would be on the differential. Reviewed with radiology. Also reviewed with
CT techs. Feel a CT of the neck which would include the arch ascending aorta and part of the descending aorta is most appropriate. Workup in progress.
*Critical Care Note
Total Time (30-74mins, 75-104mins- exclusive of procedures): 75
Data Reviewed
Review of Other/Old Records Reveals: Labs and Testing
Update Note
Update Note:
Upon immediately receiving the CT report vascular surgery and cardiothoracic surgery were contacted. Patient is on Eliquis. She took it this morning. They recommended [place]. Blood pressure at that time was low. Repeat blood pressure
142/82. Kcentra ordered.
Multiple discussions with Dr. Trivedi. Esmolol drip. Agree with Kcentra. Patient's current blood pressure 140/70. Patient fully awake and alert. Family updated.
Multiple rechecks on this patient. Blood pressures mildly elevated. Esmolol has been started. Helicopter crew here now. Remains awake and alert.
Upon discharge patient clinically was stable.
cc=75
ED Attending Note
-
Portions of this chart may have been created with voice recognition software.� Occasional wrong word or��sound alike� substitutions may have occurred due to the inherent limitations of voice recognition software.
Discharge Plan
Departure
Patient Disposition: Acute [facility], [facility]
Date of Disposition: 03/07/24
Time of Disposition: 18:58
Discharge Problem:
Type a aortic dissection
Prescriptions:
No Action
ascorbic acid (vitamin C) [Vitamin C] 500 MG tablet
1,000 mg PO DAILY
multivitamin with folic acid [Tab-A-Tripp] 1 TABLET tablet
1 tab PO DAILY
omeprazole 40 mg Capsule,Delayed Release(Dr/Ec)
40 mg PO DAILY
apixaban 5 mg Tablet
5 mg PO BID
meclizine 25 mg Tablet
25 mg PO TID PRN (Reason: vertigo)
cholecalciferol (vitamin D3) 25 mcg (1,000 unit) Tablet
25 mcg PO DAILY
Referrals:
Graham Concepcion MD [Family Provider] -
Hospital Transfer
[facility]
I certify that the patient requires transfer: Yes
Discussed case with accepting physician: leena
Reason for transfer: higher level of care
Interventions
Interventions:
*Risk Screen - Suicide Last Done: 03/07/24 15:50
*General Assessment Last Done: 03/07/24 16:46
*Neglect/Abuse Screening Last Done: 03/07/24 15:50
ED- Fall Risk Assessment Last Done: 03/07/24 16:46
*ED COVID-19 Vaccine History Last Done: 03/07/24 16:46
*Nursing Disposition Last Done: 03/07/24 19:25
ED-Musculoskeletal Assessment Last Done: 03/07/24 16:46
Discharge Date and Time
Discharge Date/Time: 03/07/24 19:29
Print Language: ICELANDIC
[2024-03-07 16:23] LABS: INR 1.45; PT 17.5 Sec (11.4-14.6)
[2024-03-07 16:31] LABS: ALT (SGPT) 11 U/L (0-35); AST (SGOT) 24 U/L (14-36); Alkaline Phosphatase 91 U/L (38-126); Blood Urea Nitrogen 18 mg/dl (7-17); Calcium 9.1 mg/dl (8.4-10.2); Carbon Dioxide 25 mmol/L (22-30); Chloride 100 mmol/L (98-107); Glucose 113 mg/dl (70-99); Potassium 4.3 mmol/L (3.5-5.1); Sodium 134 mmol/L (135-145); Total Bilirubin 1.4 mg/dl (0.2-1.3); Total Protein 7.2 g/dl (6.3-8.2); eGFR > 60.00
[2024-03-07 16:37] LABS: Troponin I < 0.012 ng/ml
[2024-03-07] MEDS: ZOFRAN 4 MG IV (17:06)
--- NOTE | 2024-03-07 18:39 | EDRN ---
Dr. Morales currently at the pts bedside, three PIV sites established, labs drawn and sent, VS WNL, NSR in the 60's, RA SP02 96%, no s/s of distress currently, pt c/p b/l ear ringing, provider aware
--- NOTE | 2024-03-07 18:50 | EDRN ---
Dr. Morales currently at the pts bedside speaking with the pt, VS WNL, Dr. Morales updating the pt on the plan
[2024-03-07] MEDS: KCENTRA 120 UNIT IV (18:57)
--- NOTE | 2024-03-07 18:59 | EDRN ---
Haily currently infusing
[2024-03-07] MEDS: BREVIBLOC 2500 MG 250 IV (19:02)
--- NOTE | 2024-03-07 19:06 | EDRN ---
Esmolol gtt up and running at 25mcg/kg/min, Dr. Morales was at the pts bedside updating the pt, the pt will be transferred to [facility]
--- NOTE | 2024-03-07 19:13 | EDRN ---
Transport is here to take the pt to [facility]
[2024-03-07] MEDS: BREVIBLOC 15 MG IV (19:20)
== END 2024-03-07 19:29 | disposition short-term general hospital (02) ==
LOC: EMR 15:33
PROVIDERS: EMERGENCY PHYSICIAN Emergency Medicine; FAMILY PHYSICIAN Internal Medicine
DX: M54.6 Pain in thoracic spine (principal); M54.2 Cervicalgia; I48.91 Unspecified atrial fibrillation; K21.9 Gastro-esophageal reflux disease without esophagitis; I10 Essential (primary) hypertension; E78.00 Pure hypercholesterolemia, unspecified; Z87.891 Personal history of nicotine dependence
CPT/HCPCS: 99284; 96374; 96375; 70450; 70498; 80053; 84484; 85025; 85610; 86850; 86900; 86901; 93005; J7168; Q9967

== ENCOUNTER 2024-05-30 12:08 | Emergency (ER) | payer MEDICARE, OTHER, SELFPAY ==
[2024-05-30 12:09] VITALS: BP 166/84
[2024-05-30 12:45] VITALS: BMI 24.5
--- NOTE | 2024-05-30 13:25 | ED.GENMED ---
History of Present Illness
<Rainer Hightower PA-C - Last Filed: 05/30/24 19:13>
General
Chief Complaint: Blood Pressure Problem
Time Seen by Provider: 05/30/24 12:54
History of Present Illness
History of Present Illness:
78-year-old female presents to the emergency department for evaluation of elevated blood pressure readings for the past 2 days. She is just under 3 months status post open repair of a type aorta or aortic dissection performed at the [place] [facility]
[place]. She has been compliant with her metoprolol and losartan since the procedure, states that she takes her vital signs routinely and does not have any prior issues with hypertension until the past 2 days. BP at home approximately 160/80.
She is concerned predominantly due to her major open heart surgery. Denies any chest pain or dyspnea. She does note having pulsatile left ear pain for the past day as well. No fevers or chills.
Past History
<Rainer Hightower PA-C - Last Filed: 05/30/24 19:13>
Past History
ED Past Medical History: Arrthythmia (Atrial fibrillation), GERD, HTN, Hypercholesterolemia and Other (benign positional vertigo)
ED Past Surgical History: Other (hernia, bladder sling)
Social History
Tobacco: Former smoker
Alcohol: None
Drug: None
Personal:
Living: with family
Employment: Employed
Family History
Family History: Other
Review of Systems
<Rainer Hightower PA-C - Last Filed: 05/30/24 19:13>
Review of Systems
Allergies reviewed?: Yes
All Other Systems: ROS reviewed and negative except as documented in HPI and ROS
Phy Exam
<Rainer Hightower PA-C - Last Filed: 05/30/24 19:13>
Physical Exam
Physical Exam:
GEN: Well appearing, NAD, WDWN
HEENT: Oral mucosa moist, no scleral icterus
Cardiac: Regular rate and rhythm, no murmurs
Lung: No respiratory distress, no tachypnea
MSK: No gross deformity or injuries
Skin: Good color, no pallor or jaundice, no rashes
Neuro: AO x3, moves all extremities freely
Psych: Calm, cooperative
Course
<Rainer Hightower PA-C - Last Filed: 05/30/24 19:13>
Orders/Labs/Results
Orders:
Orders
05/30/24 13:24
Electrocardiogram (*1) Urgent
Reason for Study: QTc Monitoring
EKG- Treatment ONCE
05/30/24 13:28
Basic Metabolic Panel Urgent
Complete Blood Count/No Diff Urgent
05/30/24 14:51
CT Head & Neck Angio W/wo IV Urgent
Comment:
Reason For Exam: ear pain, vertigo/ 12 wk s/p innominate aa repair
Abnormal Lab Results
05/30/24
13:28
RBC 3.89 L 10^6/uL
(4.20-5.40)
Hct 36.1 L %
(37.0-47.0)
MCH 32.1 H pg
(27.0-31.0)
BUN 19 H mg/dl
(7-17)
Glucose 100 H mg/dl
(70-99)
05/30/24 13:28
05/30/24 13:28
Vital Signs
Initial and Last Documented VS:
Initial Vital Signs
Temp Pulse Resp BP Pulse Ox
99.1 F 59 16 166/84 98
05/30/24 12:09 05/30/24 12:09 05/30/24 12:09 05/30/24 12:09 05/30/24 12:09
Last Documented Vital Signs
Temp Pulse Resp BP Pulse Ox
99.1 F 50 18 166/70 100
05/30/24 12:09 05/30/24 16:47 05/30/24 16:47 05/30/24 16:47 05/30/24 16:47
<Scar Morales MD - Last Filed: 05/30/24 18:56>
Orders/Labs/Results
Orders:
Orders
05/30/24 13:24
Electrocardiogram (*1) Urgent
Reason for Study: QTc Monitoring
EKG- Treatment ONCE
05/30/24 13:28
Basic Metabolic Panel Urgent
Complete Blood Count/No Diff Urgent
05/30/24 14:51
CT Head & Neck Angio W/wo IV Urgent
Comment:
Reason For Exam: ear pain, vertigo/ 12 wk s/p innominate aa repair
Abnormal Lab Results
05/30/24
13:28
RBC 3.89 L 10^6/uL
(4.20-5.40)
Hct 36.1 L %
(37.0-47.0)
MCH 32.1 H pg
(27.0-31.0)
BUN 19 H mg/dl
(7-17)
Glucose 100 H mg/dl
(70-99)
05/30/24 13:28
05/30/24 13:28
Vital Signs
Initial and Last Documented VS:
Initial Vital Signs
Temp Pulse Resp BP Pulse Ox
99.1 F 59 16 166/84 98
05/30/24 12:09 05/30/24 12:09 05/30/24 12:09 05/30/24 12:09 05/30/24 12:09
Last Documented Vital Signs
Temp Pulse Resp BP Pulse Ox
99.1 F 50 18 166/70 100
05/30/24 12:09 05/30/24 16:47 05/30/24 16:47 05/30/24 16:47 05/30/24 16:47
<Rainer Hightower PA-C - Last Filed: 05/30/24 19:13>
MDM/Problems Addressed
MDM/Problems Addressed:
Imaging was obtained evaluate the patient's vasculature in the setting of new blood pressure rise and relatively recent open innominate artery repair, imaging was grossly unremarkable. At this time there is no indication of a hypertensive crisis
thus would not opt for aggressive lowering of her blood pressure. Recommend she call her jewelry mold maker and primary care doctor tomorrow for further follow-up discussion of blood pressure remains elevated at home
<Rainer Hightower PA-C - Last Filed: 05/30/24 19:13>
*Critical Care Note
Total Time (30-74mins, 75-104mins- exclusive of procedures): Not Applicable
ED Attending Note
<Rainer Hightower PA-C - Last Filed: 05/30/24 19:13>
-
Portions of this chart may have been created with voice recognition software.� Occasional wrong word or��sound alike� substitutions may have occurred due to the inherent limitations of voice recognition software.
<Scar Morales MD - Last Filed: 05/30/24 18:56>
ED Attending Note
Patient seen and examined by attending physician: Yes
I performed the substantive portion of visit, reviewed & personally made and approve the management plan that is documented in note by myself or MELCHOR.: Yes
ED Attending Note:
78-year-old female complaining of a whooshing sound in her left ear for 2 to 3 days in addition blood pressure is elevated. Typically in the 120s. Currently 160s over 80s. No chest pain shortness of breath or other complaints. About 12 weeks ago
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
Patient's exam is unremarkable. Upper extremity pulses are equal. She is in no distress. No neck swelling. No deformity. She is warm and dry. No distress.
Plan will be to review with Sourav. Discussed whether to be more aggressive with blood pressure management and whether CT angio is necessary
Discharge Plan
Departure
Patient Disposition: Home (Routine Discharge)
Date of Disposition: 05/30/24
Time of Disposition: 16:40
Patient with high blood pressure during this ER visit?: No
Discharge Problem:
Elevated blood pressure reading
Instructions: High Blood Pressure (DC)
Prescriptions:
No Action
ascorbic acid (vitamin C) [Vitamin C] 500 MG tablet
1,000 mg PO DAILY
multivitamin with folic acid [Tab-A-Tripp] 1 TABLET tablet
1 tab PO DAILY
omeprazole 40 mg Capsule,Delayed Release(Dr/Ec)
40 mg PO DAILY
apixaban 5 mg Tablet
5 mg PO BID
meclizine 25 mg Tablet
25 mg PO TID PRN (Reason: vertigo)
cholecalciferol (vitamin D3) 25 mcg (1,000 unit) Tablet
25 mcg PO DAILY
Referrals:
Praful Greenberg MD [Active] - Call in 1-3 days for appt
Graham Concepcion MD [Family Provider] -
Activity Restrictions/Additional Instructions:
Follow up with your primary and/or jewelry mold maker if your blood pressure does not improve
Interventions
Interventions:
*Risk Screen - Suicide Last Done: 05/30/24 12:45
*General Assessment Last Done: 05/30/24 16:48
*Neglect/Abuse Screening Last Done: 05/30/24 12:45
ED- Fall Risk Assessment Last Done: 05/30/24 12:45
*ED COVID-19 Vaccine History Last Done: 05/30/24 16:48
*Nursing Disposition Last Done: 05/30/24 16:48
ED- Cardiac Assessment Last Done: 05/30/24 12:45
ED- Neurological Assessment Last Done: 05/30/24 12:45
ED- Pulmonary Assessment Last Done: 05/30/24 12:45
Discharge Date and Time
Discharge Date/Time: 05/30/24 16:49
Print Language: ROMANSH
[2024-05-30 13:59] LABS: Hematocrit 36.1 % (37.0-47.0); Hemoglobin 12.5 g/dL (12.0-16.0); Mean Corp Hgb Conc. 34.6 g/dL (33.0-37.0); Mean Corpuscular Hgb 32.1 pg (27.0-31.0); Mean Corpuscular Volume 92.8 fL (81.0-99.0); Mean Platelet Volume 9.9 fL (7.4-10.4); Platelet Count 219 10^3/uL (130-400); Red Blood Cell Count 3.89 10^6/uL (4.20-5.40); Red Cell Dist. Width 13.4 % (11.5-14.5)
[2024-05-30 14:16] LABS: Blood Urea Nitrogen 19 mg/dl (7-17); Carbon Dioxide 25 mmol/L (22-30); Chloride 100 mmol/L (98-107); Estimated Creatinine Clearance 38 ml/min; Glucose 100 mg/dl (70-99); Potassium 4.8 mmol/L (3.5-5.1); Sodium 137 mmol/L (135-145); eGFR 57.66
[2024-05-30 14:58] VITALS: BP 150/66
[2024-05-30 16:47] VITALS: BP 166/70
== END 2024-05-30 16:49 | disposition home or self-care (01) ==
LOC: EMR 12:08
PROVIDERS: Physician Assistant; EMERGENCY PHYSICIAN Emergency Medicine; FAMILY PHYSICIAN Internal Medicine; REFERRING PHYSICIAN Internal Medicine Cardiovascular Disease
DX: I10 Essential (primary) hypertension (principal); Z87.891 Personal history of nicotine dependence
CPT/HCPCS: 99285; 70496; 70498; 80048; 85027; 93005; Q9967

== ENCOUNTER 2024-07-23 07:34 | Inpatient (IN) | payer MEDICARE, OTHER, SELFPAY ==
[2024-07-22] VITALS (12 sets, daily range): BP systolic 105–149; BP diastolic 44–74; PULSE 49–68; BMI 25.4; BMI 24.7
[2024-07-22 11:28] LABS: % Basophils 0.4 % (0-2); % Eosinophils 0.4 % (0-6); % Immature Granulocytes 0.3 % (0-0.5); % Monocytes 15.7 % (1.7-9.3); % Neutrophils 68.2 % (42.2-75.2); Absolute Monocytes 1.1 10^3/uL (0.1-0.6); Absolute Neutrophils 4.5 10^3/uL (1.4-6.5); Hematocrit 35.6 % (37.0-47.0); Hemoglobin 12.2 g/dL (12.0-16.0); Mean Corp Hgb Conc. 34.3 g/dL (33.0-37.0); Mean Corpuscular Hgb 31.4 pg (27.0-31.0); Mean Corpuscular Volume 91.8 fL (81.0-99.0); Mean Platelet Volume 9.8 fL (7.4-10.4); Nucleated Red Blood Cells % 0 %; Platelet Count 156 10^3/uL (130-400); Red Blood Cell Count 3.88 10^6/uL (4.20-5.40); Red Cell Dist. Width 12.6 % (11.5-14.5); White Blood Cell Count 6.7 10^3/uL (4.8-10.8)
[2024-07-22 11:42] LABS: ALT (SGPT) 19 U/L (0-35); AST (SGOT) 30 U/L (14-36); Alkaline Phosphatase 70 U/L (38-126); Blood Urea Nitrogen 20 mg/dl (7-17); Calcium 8.6 mg/dl (8.4-10.2); Carbon Dioxide 24 mmol/L (22-30); Chloride 104 mmol/L (98-107); Estimated Creatinine Clearance 36 ml/min; Glucose 102 mg/dl (70-99); Sodium 139 mmol/L (135-145); Total Bilirubin 0.8 mg/dl (0.2-1.3); Total Protein 6.6 g/dl (6.3-8.2); eGFR 51.43
--- NOTE | 2024-07-22 12:11 | ED.GENMED ---
History of Present Illness
General
Chief Complaint: Dizziness
Source: patient
Exam Limitations: none
Time Seen by Provider: 07/22/24 11:21
History of Present Illness
History of Present Illness:
Patient feeling off the last few days. Some dry cough. Mild sore throat. Mild myalgias. [place] lightheaded and felt like she might pass out this morning. The symptoms have resolved. No chest pain or shortness of breath.
Past History
Past History
ED Past Medical History: Arrthythmia (Atrial fibrillation), GERD, HTN, Hypercholesterolemia and Other (benign positional vertigo)
ED Past Surgical History: Cardiac (Aortic dissection surgery) and Other (hernia, bladder sling)
Social History
Tobacco: Former smoker
Alcohol: None
Drug: None
Personal:
Living: with family
Employment: Employed
Family History
Family History: Other
Review of Systems
Review of Systems
All Other Systems: Not applicable
Respiratory: Denies trouble breathing
Cardiac: Denies chest pain
Phy Exam
Physical Exam
Physical Exam:
GENERAL: Alert and oriented in no apparent distress
EYE: Orbits normal.
NECK: Supple, no significant adenopathy.
ENT: Pharynx without erythema
CARDIAC: Regular rate and rhythm. Sternotomy scar.
LUNGS: Clear breath sounds,normal
ABDOMEN: Soft, without focal tenderness or distention
NEUROLOGICAL: Alert and oriented , grossly non-focal
SKIN: Warm and dry, no rash or lesion, no discoloration, skin intact.
MUSCULOSKELETAL: No edema,no deformity.Good color
PSYCH: Normal and appropriate interaction.
Course
Orders/Labs/Results
Orders:
Orders
07/22/24 11:10
EKG [Electrocardiogram (*1)] Urgent
Reason for Study: Vertigo / Dizzy
EKG- Treatment ONCE
07/22/24 11:17
CBC/With Diff [Complete Blood Count/With Diff] Urgent
CMP [Comprehensive Metabolic Panel] Urgent
07/22/24 11:37
CXR Port [CR Chest Portable - 1 View] Urgent
Comment:
Reason For Exam: Coughs/COVID positive
Reason Study Needs to be Portable: Other
07/22/24 11:57
COVID-19 Antigen Urgent
Source: Nasal Swab
Influenza A+B Rapid Molecular Urgent
RENE Source: Nasal Swab
Specimen Description:
Abnormal Lab Results
07/22/24 07/22/24
11:17 11:57
RBC 3.88 L 10^6/uL
(4.20-5.40)
Hct 35.6 L %
(37.0-47.0)
MCH 31.4 H pg
(27.0-31.0)
Absolute Lymphs (auto) 1.0 L 10^3/uL
(1.2-3.4)
Absolute Monos (auto) 1.1 H 10^3/uL
(0.1-0.6)
Lymphocytes % 15.0 L %
(20.5-51.1)
Monocytes % 15.7 H %
(1.7-9.3)
BUN 20 H mg/dl
(7-17)
Creatinine 1.1 H mg/dL
(0.6-1.0)
Glucose 102 H mg/dl
(70-99)
SARS-CoV-2 Antigen Positive A
(Negative)
07/22/24 11:17
07/22/24 11:17
Vital Signs
Initial and Last Documented VS:
Initial Vital Signs
Temp Pulse Resp BP Pulse Ox
99.0 F 55 16 114/56 96
07/22/24 11:11 07/22/24 11:11 07/22/24 11:11 07/22/24 11:11 07/22/24 11:11
Last Documented Vital Signs
Temp Pulse Resp BP Pulse Ox
99.0 F 48 18 110/72 94
07/22/24 11:11 07/22/24 13:00 07/22/24 13:14 07/22/24 13:00 07/22/24 12:45
*Radiology
Radiology exam reviewed: preliminary read by ED provider (Negative)
*Pulse Oximetry
Patient hypoxic: no
*EKG
Interpreted by ED Provider?: Yes
Interpretation: abnormal
Comparison EKG: changes noted
Heart Rate: 48
Rate: bradycardiac
Rhythm: sinus
[place]: normal axis
Interval: normal interval
QRS Pattern: normal QRS
Ischemia: non-specific ST changes
*Critical Care Note
Total Time (30-74mins, 75-104mins- exclusive of procedures): Not Applicable
Update Note
Update Note:
Patient generally feeling weak. Lightheaded upon standing. Given age living alone feel best to observe in the hospital overnight.
ED Attending Note
-
Portions of this chart may have been created with voice recognition software.� Occasional wrong word or��sound alike� substitutions may have occurred due to the inherent limitations of voice recognition software.
Discharge Plan
Departure
Patient Disposition: Admit
Date of Disposition: 07/22/24
Time of Disposition: 13:28
Presentation/result/management discussed w/ accepting MD/DO: Hospitalist
Discharge Problem:
Near syncope, COVID-19, General weakness
Prescriptions:
No Action
ascorbic acid (vitamin C) [Vitamin C] 500 MG tablet
1,000 mg PO DAILY
multivitamin with folic acid [Tab-A-Tripp] 1 TABLET tablet
1 tab PO DAILY
omeprazole 40 mg Capsule,Delayed Release(Dr/Ec)
40 mg PO DAILY
apixaban 5 mg Tablet
5 mg PO BID
meclizine 25 mg Tablet
25 mg PO TID PRN (Reason: vertigo)
cholecalciferol (vitamin D3) 25 mcg (1,000 unit) Tablet
25 mcg PO DAILY
Referrals:
Graham Concepcion MD [Family Provider] -
Interventions
Interventions:
*Risk Screen - Suicide Last Done: 07/22/24 11:11
*General Assessment Last Done: 07/22/24 11:11
*Neglect/Abuse Screening Last Done: 07/22/24 11:11
ED- Fall Risk Assessment Last Done: 07/22/24 11:20
*ED COVID-19 Vaccine History Last Done: 07/22/24 11:19
ED- Neurological Assessment Last Done: 07/22/24 11:19
ED- Cardiac Assessment Last Done: 07/22/24 11:20
ED Swallowing Screen Last Done: 07/22/24 12:45
Discharge Date and Time
Print Language: AMHARIC
[2024-07-22 12:33] LABS: COVID-19 Antigen Positive (Negative)
--- NOTE | 2024-07-22 13:49 | HPS.HSE ---
Family Physician
-
Family Physician: Graham Concepcion
Chief Complaint
-
Lightheadedness
History of Present Illness
Patient is a 78 y/o female past medical history of recent aortic dissection, paroxysmal atrial fibrillation, and hypertension who presents with dizzy/lightheadedness. Patient reports she started to feel unwell on Friday. She reports sore throat and
dry cough that start on Friday. She notes she slept very poorly the past two nights. This morning when she stood up she got diaphoretic, dizzy/lightheaded and thought she was going to pass out. When I had her lean forward to listen to her
posterior lungs she noted feeling lightheaded. She denies fevers. She denies shortness of breath, or chest pain.
Medical History
Past Medical History
Past Medical History: Reports Other
Additional Past Medical History:
Aortic Dissection
Paroxysmal Atrial Fibrillation
Essential Hypertension
Hyperlipidemia
Past Surgical History: Reports Other
Additional Past Surgical History:
Aortic Dissection Repair
Tonsillectomy
D&C
Ventral Hernia
Prolapsed Bladder
Social History
Tobacco: Former Smoker (Quit over 20 years ago)
Alcohol: None
Living: Alone
Family History
Family History: Not pertinent
Allergies / Home Medications
Allergies reflects when Allergies were last updated in [employer].
Home Medications with original date entered in [employer] [facility]
Allergy/Medication List:
Allergies
Allergy/AdvReac Type Severity Reaction Status Date / Time
codeine Allergy Severe Verified 05/30/24 12:11
Nausea
Sulfa (Sulfonamide Allergy Tongue Verified 05/30/24 12:11
Antibiotics) Swelling
tetracycline [Tetracycline] Allergy Extreme Verified 05/30/24 12:11
stomach
pain
Home Medications
ascorbic acid (vitamin C) 500 mg tablet (Vitamin C) 1,000 mg PO DAILY Supplement 04/13/14
multivitamin with folic acid 400 mcg tablet (Tab-A-Tripp) 1 tab PO DAILY Supplement 11/19/21
cholecalciferol (vitamin D3) 25 mcg (1,000 unit) tablet 25 mcg PO DAILY 03/07/24
meclizine 25 mg tablet 25 mg PO TID PRN vertigo 03/07/24
acetaminophen 500 mg tablet (Tylenol Extra Strength) 1,000 mg PO Q6HPRN PRN headache 07/22/24
amiodarone 200 mg tablet 100 mg PO DAILY 07/22/24
aspirin 81 mg tablet,delayed release 81 mg PO QPM 07/22/24
fluticasone propionate 50 mcg/actuation nasal spray,suspension 1 spray intranasal HSPRN PRN allergies 07/22/24
losartan 50 mg tablet 50 mg PO DAILY 07/22/24
metoprolol succinate 50 mg tablet,extended release 24 hr 25 mg PO DAILY 07/22/24
peg 400-propylene glycol (PF) 0.4 %-0.3 % eye drops in a dropperette (Systane (PF)) 1 drp BOTH EYES BIDPRN PRN dry eyes 07/22/24
psyllium husk 3.4 gram/5.4 gram oral powder (Metamucil) 1 tsp PO DAILY 07/22/24
Review of Systems
-
A 12 point ROS was completed and negative except as noted: Yes
Constitutional: Denies Fever
Respiratory: Reports Cough; Denies Trouble Breathing
Cardiac: Denies Chest Pain or Palpitations
Physical Exam
Vital Signs
Vital Signs
Temp Pulse Resp BP Pulse Ox
99.0 F 48 18 110/72 94
07/22/24 11:11 07/22/24 13:00 07/22/24 13:14 07/22/24 13:00 07/22/24 12:45
Physical Exam
General: Comfortable and Conversant
HEENT: Anicteric and Other (Facemask over mouth and nose)
Respiratory: Clear and Non Labored Respirations
Cardiac: S1/S2, Regular Rhythm and Bradycardia
GI: Soft and Non Tender
Rectal: Deferred by Provider
Musculoskeletal: No Clubbing, No Cyanosis and No Edema
Skin: Warm and Dry
Neuro: Awake, Alert and Nonfocal/grossly intact
Psych: Calm
Laboratory Results
-
07/22/24 11:17
07/22/24 11:17
Laboratory Results
Total Bilirubin 0.8 mg/dl (0.2-1.3) 07/22/24 11:17
AST 30 U/L (14-36) 07/22/24 11:17
ALT 19 U/L (0-35) 07/22/24 11:17
Alkaline Phosphatase 70 U/L (38-126) 07/22/24 11:17
Data Reviewed
-
Lab Data: Labs Reviewed by me
Impression/Plan
-
Near Syncope, patient noted with mild bradycardia
-Monitor on Telemetry
-Hold Metoprolol
-Continue IVFs
-Check orthostatic VS
-If bradycardia persists consider Cardiology
COVID Viral Infection
-Continue supportive care
Paroxysmal Atrial Fibrillation
-Continue amiodarone with hold parameters for heart rate less than 60
-Hold Metoprolol due to bradycardia
-Patient no longer on anticoagulation following left atrial appendage ligation
Essential Hypertension
-Continue losartan with hold parameters for SBP Less Than 120
-Metoprolol on hold due bradycardia
Recent Aortic Dissection s/p Repair
-Continue Aspirin
DVT proph: Lovenox
Code Status: Full Code
--- NOTE | 2024-07-22 14:13 | W.PN.UPDATE ---
Update Note
Progress Note Update
This is an addendum to the H&P written by Maryellen Martin on 07/22/2024.� Patient seen and examined independently with PA.
78-year-old female past medical history of paroxysmal atrial fibrillation, thoracic aortic dissection status post repair few months ago at [place], prior syncope secondary to vasovagal episode, meningioma, GERD, presenting with dry cough, mild sore
throat, myalgias for past 4 days.� Had a near syncopal episode today.
Patient with blood pressure 110/72, heart rate in the 40-50s.� Patient not hypoxic.
Patient positive for COVID.� Labs unremarkable.� Bradycardia likely secondary to COVID.� Patient not on any rate control medications.� Chest x-ray pending.� IV fluids. Check orthostatics.� PT/OT. Hold metoprolol.�Continue amiodarone.�Consider
Cardiology.�
[2024-07-22] MEDS: NSS 1000 IV (15:25)
[2024-07-22] MEDS: ASPIR LOW (ENTERIC COATED) 81 MG PO (17:38)
[2024-07-22] MEDS: LOVENOX 40 MG SC (17:38)
[2024-07-22] MEDS: TYLENOL 1000 MG PO (20:46)
[2024-07-22] MEDS: VITAMIN C 500 MG PO (20:47)
[2024-07-22] MEDS: MUCINEX PO ×2 (20:47→21:03)
[2024-07-23 03:31] VITALS: BP 131/60
--- NOTE | 2024-07-23 03:45 | W.PN.UPDATE ---
Update Note
Progress Note Update
Patient was admitted with near syncope with mild bradycardia. During night patient noted with hr down to 30s and low 40s, patient feels fatigued. Cardiology consult was placed.
[2024-07-23 05:36] VITALS: BMI 25.7
[2024-07-23] MEDS: NSS 1000 IV ×2 (06:33→17:47)
--- NOTE | 2024-07-23 07:22 | W.PN.HOSP.TC ---
Today's Communication/Plan
-
cont monitor on Tele
hold metoprolol
prn compazine nausea
monitor orthostatic vitals
fall precautions
COVID isolation
eventual PT/OT eval
Assessment / Plan
Assessment / Plan
Physical Exam
General: Comfortable and Conversant
HEENT: Anicteric normocephalic atraumatic
Respiratory: Clear and Non Labored Respirations, stable respiratory status on room air
Cardiac: S1/S2, Regular Rhythm and Bradycardia
GI: Soft and Non Tender bowel sounds present
Musculoskeletal: No Clubbing, No Cyanosis and No Edema
Skin: Warm and Dry
Neuro: Awake, Alert and Nonfocal/grossly intact
Psych: Calm
HPI: 78F recent aortic dissection repair, paroxysmal atrial fibrillation, and hypertension p/w dizzy/lightheadedness. Reported she started to feel unwell on Friday (3 days ago) with sore throat and dry cough that started on Friday. Noted poor
sleep past two nights. Morning following she stood up and became diaphoretic, dizzy/lightheaded and thought she was going to pass out. Tested positive for COVID on ED evaluation and noted to be severely bradycardic to 30s. BP stable, admitted for
further mgmt tx.
Near Syncope, patient noted with symptomatic bradycardia
-Monitor on Telemetry
-Hold Metoprolol
-Continue IVFs
-Monitor orthostatic vitals
-Cardio eval appreciated cont hold home BB, no pauses heart block noted on tele
-ECHO appreciated EF 55-60 no significant valve abn's noted
Episode severe Nausea morning 07/23
denied chest pain
troponin neg
EKG appreciated nonspecific ST abn's
prn Compazine
COVID Viral Infection
-Continue supportive care
-ID eval appreciated
Paroxysmal Atrial Fibrillation
-Continue amiodarone with hold parameters for heart rate less than 60
-Hold Metoprolol due to bradycardia
-Patient no longer on anticoagulation following left atrial appendage ligation
Essential Hypertension
-Continue losartan with hold parameters for SBP Less Than 120
-Metoprolol on hold due bradycardia
Recent Aortic Dissection s/p Repair
-Continue Aspirin
DVT proph: Lovenox
GI ppx Pepcid
Code Status: Full Code
I spent a total of 50 minutes with the patient or on the floor. More than 50% of this time involved counseling and coordination of care.
Anticipated Discharge: > 48 hours
Subjective/Interval History
-
Date of Service: July 23, 2024
Seen and examined at bedside mild moderate distress due to nausea recently received compazine.
Denies chest pain.
Respiratory status remains stable on room air
reports some lightheadedness
Objective Data
-
Labs:
Laboratory Results
07/23/24
05:37
Sodium Pending
Potassium Pending
Chloride Pending
Carbon Dioxide Pending
BUN Pending
Creatinine Pending
Glucose Pending
Calcium Pending
Vital Signs:
Vital Signs
Temp Pulse Resp BP Pulse Ox
98.5 F 70 18 131/60 97
07/23/24 03:31 07/23/24 03:31 07/23/24 03:31 07/23/24 03:31 07/23/24 03:31
I&O
07/22/24 07/23/24 07/24/24
06:59 06:59 06:59
Intake Total 1680 / 1680
Balance 1680 / 1680
[2024-07-23 07:40] VITALS: BP 134/59
--- NOTE | 2024-07-23 07:44 | CON.CAR ---
Addendum entered and electronically signed by Mio James DO 07/23/24 16:54:
I saw and examined the patient.
The Spinning Frame Cleaner's note was reviewed and I agree with the note.
Comment:
Patient with longstanding asymptomatic sinus bradycardia, PAF, HLD, GERD, anxiety, frontal meningioma, and recent type A dissection with repair at [facility] presenting with dizziness, LH, sore throat, cough, SOB, diaphoresis. Patient found to have COVID.
Patient chronically on amiodarone and beta-pedro. Beta-pedro held. Patient reports improvement in dizziness symptoms. HR unchanged 40-60s on monitor; no AVB, pauses. EKG SB/SR without significant STT changes. Patient has received IVF and
supportive care.
Continue supportive care for acute COVID infection
Hold beta-pedro, continue amiodarone
Patient off OAC 2/2 recent surgery; has follow-up with Dr Greenberg as outpatient; further discussion regarding OAC and known LEELA clip to occur at that time; continue ASA
No further intervention at this time, recommend continued monitoring on telemetry while in-patient; follow-up outpatient with primary street light servicer helper as scheduled
Original Note:
Consultation
Consultation Request
Date/Time Consultation Requested: 07/23/2024
Date/Time Consultation Performed: 07/23/2024
Requesting Provider: Dr. Burrell
Performing Provider: Daisy May PA-C for Dr. James
Reason for Consultation: Near syncope, bradycardia
Medical History
-
Chief Complaint: CP
History of Present Illness:
HPI: Shasta is a 78 year old female with PMH of type A aortic dissection s/p repair, paroxysmal atrial fibrillation, bradycardia, HLD, GERD, anxiety, and frontal meningioma. She presented to [facility] for evaluation as she felt 'off' over the past few
days. Starting on Friday, 07/20, she had sore throat and cough. Yesterday AM, she stood up and became diaphoretic and dizzy/lightheaded. She felt near-syncopal, however did not pass out or lose consciousness. Given near syncope, she came to ER for
evaluation. In ER, she was noted to have bradycardia with HRs at times in the 40s, however this is a known history. She was also found to be COVID +. She continued to have some lightheadedness in ER, and was admitted for further workup and
observation overnight. Her Toprol was held and cardiology consulted.
PMH:
Type A aortic dissection s/p repair 03/2024
Sinus bradycardia
Paroxysmal atrial fibrillation
s/p LEELA ligation, no OAC
Dyslipidemia
GERD
Anxiety
h/o R frontal meningioma
FH of premature CAD
Past Medical History
Past Medical History: Other (in HPI)
Past Surgical History: Cardiac (Aortic dissection repair w/ aortic valve resuspension and ascending hemiarch replacement 03/2024), Tonsilectomy and Other (Ventral hernia repair, bladder sling)
Social History
Tobacco: Former Smoker
Alcohol: None
Drug: None
Living: Alone
Employment: Employed ([employer])
Family History
Family History: Early CAD and Other (aneurysms in brother)
Allergies / Home Medications
Allergy/AdvReac Type Severity Reaction Status Date / Time
codeine Allergy Severe Verified 05/30/24 12:11
Nausea
Sulfa (Sulfonamide Allergy Tongue Verified 05/30/24 12:11
Antibiotics) Swelling
tetracycline [Tetracycline] Allergy Extreme Verified 05/30/24 12:11
stomach
pain
�Medication �Instructions �Recorded �Confirmed �Type
ascorbic acid (vitamin C) 500 mg 500 mg PO BID Supplement 04/13/14 07/22/24 History
tablet (Vitamin C)
multivitamin with folic acid 400 1 tab PO DAILY Supplement 11/19/21 07/22/24 History
mcg tablet (Tab-A-Tripp)
cholecalciferol (vitamin D3) 25 25 mcg PO DAILY Supplement 03/07/24 07/22/24 History
mcg (1,000 unit) tablet
meclizine 25 mg tablet 25 mg PO TID PRN vertigo 03/07/24 07/22/24 History
acetaminophen 500 mg tablet 1,000 mg PO Q6HPRN PRN headache 07/22/24 07/22/24 History
(Tylenol Extra Strength)
amiodarone 200 mg tablet 100 mg PO DAILY Arrhythmia 07/22/24 07/22/24 History
aspirin 81 mg tablet,delayed 81 mg PO QPM Blood Clot 07/22/24 07/22/24 History
release Prevention/Tx
fluticasone propionate 50 1 spray intranasal HSPRN PRN 07/22/24 07/22/24 History
mcg/actuation nasal allergies
spray,suspension
losartan 50 mg tablet 50 mg PO DAILY Blood Pressure 07/22/24 07/22/24 History
metoprolol succinate 50 mg 25 mg PO DAILY Blood Pressure 07/22/24 07/22/24 History
tablet,extended release 24 hr
peg 400-propylene glycol (PF) 0.4 1 drp BOTH EYES BIDPRN PRN dry eyes 07/22/24 07/22/24 History
%-0.3 % eye drops in a dropperette
(Systane (PF))
psyllium husk 3.4 gram/5.4 gram 1 tsp PO DAILY Constipation 07/22/24 07/22/24 History
oral powder (Metamucil)
Review of Systems
-
History Source: Patient
All other systems: Negative unless noted
Physical Exam
Vital Signs
Temp Pulse Resp BP Pulse Ox
98.5 F 70 18 131/60 97
07/23/24 03:31 07/23/24 03:31 07/23/24 03:31 07/23/24 03:31 07/23/24 03:31
Lab Results
07/22/24 11:17
Impression / Plan
-
PCP: Dr. Concepcion
Linux Admin Engineer: Dr. Greenberg
Impression:
Presented with cough, sore throat, near syncope
COVID + 07/22/2024
Sinus bradycardia
Type A aortic dissection s/p repair 03/2024
Paroxysmal atrial fibrillation
s/p LEELA ligation, no OAC
Dyslipidemia
GERD
Anxiety
h/o R frontal meningioma
FH of premature CAD
CAM monitor 10/2019: 7 brief episodes of A. tach but no A. fib in the
4-day cardiac cath rn 01/2021: Sinus bradycardia with mean heart rate 59 with 9 episodes of A. tach but no A. fib
ECHO 10/18/2019: EF 55 to 60%, mild MR, mild TR
ECHO 06/13/22: EF 60 to 65%, mild thickening of mitral leaflets, mild MR, mild AR, mild TR, PAP 26 to 31 mmHg, no significant change compared to prior from 2019
NOEL 03/2024 @ [facility]: Post-op. EF 60%, mild MR, mod TR
Plan:
-Presented with near syncope, cough, and sore throat. Covid + in ER. CXR with no active disease. Continue supportive care.
-EKG reviewed. Sinus bradycardia w/ HR 48 bpm.
-Tele reviewed from overnight. HR at times dropping into the 30s. She has known bradycardia with HR typically in the 40s-50s as OP.
-No pauses or heart block seen on Tele.
-Agree w/ holding Toprol for now. No further dizziness this AM.
-Continue amiodarone 100mg daily.
-She has h/o atrial fibrillation, however no afib seen on review of telemetry. Not on AC due to h/o LEELA ligation.
-BP stable. Continue losartan.
-Continue aspirin 81mg daily.
-Follow up arranged w/ primary street light servicer helper.
HPI: Shasta is a 78 year old female with PMH of type A aortic dissection s/p repair, paroxysmal atrial fibrillation, bradycardia, HLD, GERD, anxiety, and frontal meningioma. She presented to [facility] for evaluation as she felt 'off' over the past few
days. Starting on Friday, 07/20, she had sore throat and cough. Yesterday AM, she stood up and became diaphoretic and dizzy/lightheaded. She felt near-syncopal, however did not pass out or lose consciousness. Given near syncope, she came to ER for
evaluation. In ER, she was noted to have bradycardia with HRs at times in the 40s, however this is a known history. She was also found to be COVID +. She continued to have some lightheadedness in ER, and was admitted for further workup and
observation overnight. Her Toprol was held and cardiology consulted.
Data Reviewed
-
EKG: Tracing Personally Visualized and interpreted
Radiology: Report Reviewed by me
Labs: Labs Reviewed by me
Old Records: Reviewed
[2024-07-23 08:10] LABS: Blood Urea Nitrogen 22 mg/dl (7-17); Calcium 8.3 mg/dl (8.4-10.2); Carbon Dioxide 21 mmol/L (22-30); Chloride 105 mmol/L (98-107); Estimated Creatinine Clearance 38 ml/min; Glucose 76 mg/dl (70-99); Potassium 3.8 mmol/L (3.5-5.1); Sodium 140 mmol/L (135-145); eGFR 57.66
[2024-07-23] MEDS: VITAMIN D3 (cholecalciferol) 25 MCG PO (08:40)
[2024-07-23] MEDS: VITAMIN C 500 MG PO ×2 (08:40→21:17)
[2024-07-23] MEDS: MUCINEX 600 MG PO ×2 (08:40→21:17)
[2024-07-23] MEDS: PACERONE PO (08:42)
[2024-07-23] MEDS: COZAAR 50 MG PO (08:43)
[2024-07-23 09:57] VITALS: BP 160/88
[2024-07-23] MEDS: COMPAZINE 5 MG PO (10:25)
--- NOTE | 2024-07-23 10:54 | PTCARENOTE ---
Patient ringing arnett c/o sudden nausea with lightheadedness, denies CP and states no other concerns. BP taken by tech 160/88 HR 46 while supine in bed. MD made aware, stat compazine ordered per MD and administered by this RN. EKG and troponin
ordered per MD, cardiology at bedside to review EKG.
[2024-07-23 11:10] VITALS: BP 141/61
[2024-07-23 11:30] LABS: Troponin I < 0.012 ng/ml
--- NOTE | 2024-07-23 14:03 | CON.ID ---
Consultation
-
Date/Time Consultation Requested: 07/23/2024 1043
Date/Time Consultation Performed: 07/23/2024 1340
Requesting Provider: Dr. Davis
Performing Provider: Dr. Arguello
Reason for Consultation: COVID-19
Chief Complaint / Past History
History of Present Illness
Shasta Ramírez is a 78-year-old female being evaluated at the request of Dr. Davis in regards to COVID-19. History is obtained from chart review, along with patient interview.
The patient presented to [facility] ER on 07/22 secondary to feeling lightheaded. She reports that she has felt 'off' over the past several days and 2 days ago developed pharyngitis and a cough. Yesterday when she stood up she became dizzy
and lightheaded, but did not pass out or lose consciousness. She came to the emergency room for further evaluation where she was found to have significant bradycardia, dipping down to 40 bpm at some points. Workup in the ER revealed that she was
COVID-positive, and Infectious Diseases is asked to comment upon necessity of treatment.
Thus far, she has not had any fevers. Her respiratory status is stable, and she is not requiring supplemental O2.. She reports occasional chills. She denies any shortness of breath or significant cough. She notes that several other people at her
bahai have also been found to be COVID-positive. She notes that she is vaccinated x 2, but she does not feel any necessity for getting further vaccinations.
Past History
Additional Past Medical History:
Type A aortic dissection
Sinus bradycardia
Paroxysmal atrial fibrillation
s/p
Dyslipidemia
GERD
Anxiety
Hx (R) frontal meningioma
Additional Past Surgical History:
LEELA ligation
aortic valve resuspension and ascending hemiarch replacement (03/2024)
Ventral hernia repair
Bladder sling
Allergy History:
codeine Allergy (Verified 05/30/24 12:11)
Severe Nausea
Sulfa (Sulfonamide Antibiotics) Allergy (Verified 05/30/24 12:11)
Tongue Swelling
tetracycline [Tetracycline] Allergy (Verified 05/30/24 12:11)
Extreme stomach pain
Medications Reviewed: Yes
Current Antibiotics:
None
Social History
Tobacco: Former Smoker
Alcohol: None
Drug: None
Living: Alone
Employment: Employed
Family History
Family History: Not Pertinent
Review of Systems
Vital Signs
Temp Pulse Resp BP Pulse Ox
98.3 F 47 16 141/61 99
07/23/24 11:10 07/23/24 11:10 07/23/24 11:10 07/23/24 11:10 07/23/24 11:10
Physical Exam
Physical Exam
Constitutional: No Acute Distress, Comfortable and Non-toxic
Eyes: No Conjunctival Hemorrhage and Sclera Anicteric
Cardiovascular: Regular Rate and S1/S2; Negative S3/S4
Pulmonary: Clear and Non Labored; Negative Rhonchi
Gastrointestinal: Soft, Non Tender, Non Distended and Normal Bowel Sounds
Extremities: Negative Edema, Cyanosis or Erythema
Skin: Negative Rash or Jaundice
Neurological: Awake and Alert
Psychological: Calm
Lab / Diagnostic Study Results
07/22/24 11:17
07/23/24 05:37
Abs Immat Gran (auto) 0.0 10^3/uL (0-0.05) 07/22/24 11:17
Absolute Neuts (auto) 4.5 10^3/uL (1.4-6.5) 07/22/24 11:17
Absolute Lymphs (auto) 1.0 10^3/uL (1.2-3.4) L 07/22/24 11:17
Absolute Monos (auto) 1.1 10^3/uL (0.1-0.6) H 07/22/24 11:17
Absolute Basos (auto) 0.0 10^3/uL (0-0.2) 07/22/24 11:17
Immature Gran % 0.3 % (0-0.5) 07/22/24 11:17
Neutrophils % 68.2 % (42.2-75.2) 07/22/24 11:17
Lymphocytes % 15.0 % (20.5-51.1) L 07/22/24 11:17
Monocytes % 15.7 % (1.7-9.3) H 07/22/24 11:17
Eosinophils % 0.4 % (0-6) 07/22/24 11:17
Basophils % 0.4 % (0-2) 07/22/24 11:17
Microbiology Results
Micro:
07/22/24 11:57 Influenza Types A & B (HUI) - Final
Nasal Swab Negative for Influenza A & B, NAAT
Negative results must be combined with clinical observations
and patient history.
Nucleic Acid Amplification test (NAAT)performed on the
[employer] platform.
07/22/24
11:57
SARS-CoV-2 Antigen Positive A
Imaging:
07/22/2024 CXR (portable): No acute mediastinal abnormalities. No acute pleural or parenchymal abnormalities noted. Please see full dictation for additional detail. Film personally reviewed.
Assessment / Plan
COVID-19 infection
-No respiratory complaints at present
Bradycardia
Type A aortic dissection
Sinus bradycardia
Paroxysmal atrial fibrillation
s/p
Dyslipidemia
GERD
Anxiety
Hx (R) frontal meningioma
Recommendations:
Patient relatively on symptomatic at present. Currently no respiratory complaints.
Patient on amiodarone, and there would be significant drug drug interactions to use Paxlovid at the present time.
Additionally, patient is not interested in going on Paxlovid given the chance of rebound disease.
Continue to monitor clinical status, but no antivirals for the present.
[2024-07-23 15:10] VITALS: BP 123/71; BP 143/65; BP 144/69; PULSE 50; PULSE 51; PULSE 63
--- NOTE | 2024-07-23 15:44 | CM ---
Patient met at bedside.
DX: Syncope + COVID
PMH: recent aortic dissection, afib, HTN,
IA completed. IMM explained & signed.
Lives in an apartment alone 0 steps to enter
PLOF: Ambulatory no assistive device
No DME
Denies prior SNF, had [facility] in March after aortic dissection
No needs anticipated
PCP: Graham Concepcion
Pharmacy: [facility]
PLAN: Home, currently no needs anticipated.
[2024-07-23] MEDS: ASPIR LOW (ENTERIC COATED) 81 MG PO (17:47)
[2024-07-23] MEDS: LOVENOX 40 MG SC (17:47)
[2024-07-23 19:00] VITALS: BP 134/61; BP 139/90; BP 151/74; PULSE 56; PULSE 60; PULSE 70
[2024-07-23] MEDS: PEPCID 20 MG PO (21:17)
[2024-07-24] VITALS (10 sets, daily range): BP systolic 135–164; BP diastolic 62–91; PULSE 54–70; O2SAT 97; BMI 25.1
[2024-07-24] MEDS: TYLENOL 1000 MG PO (04:24)
[2024-07-24 06:33] LABS: Hemoglobin 11.2 g/dL (12.0-16.0); Mean Corpuscular Hgb 32.9 pg (27.0-31.0); Mean Corpuscular Volume 94.1 fL (81.0-99.0); Mean Platelet Volume 9.8 fL (7.4-10.4); Platelet Count 142 10^3/uL (130-400); Red Cell Dist. Width 12.7 % (11.5-14.5); White Blood Cell Count 4.3 10^3/uL (4.8-10.8)
[2024-07-24 06:58] LABS: Blood Urea Nitrogen 17 mg/dl (7-17); Calcium 8.1 mg/dl (8.4-10.2); Carbon Dioxide 20 mmol/L (22-30); Chloride 108 mmol/L (98-107); Estimated Creatinine Clearance 43 ml/min; Glucose 85 mg/dl (70-99); Magnesium 1.9 mg/dl (1.6-2.3); Phosphorus 3.4 mg/dl (2.5-4.5); Potassium 3.9 mmol/L (3.5-5.1); Sodium 140 mmol/L (135-145); eGFR > 60.00
--- NOTE | 2024-07-24 07:46 | W.PN.HOSP.TC ---
Today's Communication/Plan
-
cont hold metoprolol
ok to dc stylist assistant,
dc IVF
likely dc tomorrow if remains stable, cont to improve
Assessment / Plan
Assessment / Plan
Physical Exam
General: Comfortable and Conversant
HEENT: Anicteric normocephalic atraumatic
Respiratory: Clear and Non Labored Respirations, stable respiratory status on room air
Cardiac: S1/S2, Regular Rhythm and Bradycardia
GI: Soft and Non Tender bowel sounds present
Musculoskeletal: No Clubbing, No Cyanosis and No Edema
Skin: Warm and Dry
Neuro: Awake, Alert and Nonfocal/grossly intact
Psych: Calm
HPI: 78F recent aortic dissection repair, paroxysmal atrial fibrillation, and hypertension p/w dizzy/lightheadedness. Reported she started to feel unwell on Friday (3 days ago) with sore throat and dry cough that started on Friday. Noted poor
sleep past two nights. Morning following she stood up and became diaphoretic, dizzy/lightheaded and thought she was going to pass out. Tested positive for COVID on ED evaluation and noted to be severely bradycardic to 30s. BP stable, admitted for
further mgmt tx.
Near Syncope, patient noted with symptomatic bradycardia
-Monitor on Telemetry
-Hold Metoprolol
-IVF support completed with improvement oral intake
-Monitor orthostatic vitals
-Cardio eval appreciated cont hold home BB, no pauses heart block noted on tele, stable cardiac status, ok to dc telemetry
-ECHO appreciated EF 55-60 no significant valve abn's noted
Episode severe Nausea morning 07/23
denied chest pain
troponin neg
EKG appreciated nonspecific ST abn's
prn Compazine
nausea since resolved
COVID Viral Infection
-Continue supportive care
-ID eval appreciated
Paroxysmal Atrial Fibrillation
-Continue amiodarone with hold parameters for heart rate less than 60
-Hold Metoprolol due to bradycardia
-Patient no longer on anticoagulation following left atrial appendage ligation
Essential Hypertension
-Continue losartan with hold parameters for SBP Less Than 120
-Metoprolol on hold due bradycardia
Recent Aortic Dissection s/p Repair
-Continue Aspirin
DVT proph: Lovenox
GI ppx Pepcid
Code Status: Full Code
I spent a total of 35 minutes with the patient or on the floor. More than 50% of this time involved counseling and coordination of care.
Anticipated Discharge: Within 24 hours
Subjective/Interval History
-
Date of Service: July 24, 2024
Symptomatically improved. Nausea resolved. Some lightheadedness weakness persists but otherwise significantly improved per patient.
Objective Data
-
Labs:
Laboratory Results
07/24/24 07/24/24
06:08 06:09
WBC 4.3 L
Hgb 11.2 L
Hct 32.0 L
Plt Count 142
Sodium 140
Potassium 3.9
Chloride 108 H
Carbon Dioxide 20 L
BUN 17
Creatinine 0.9
Glucose 85
Calcium 8.1 L
Vital Signs:
Vital Signs
Temp Pulse Resp BP Pulse Ox
98.0 F 51 18 138/66 95
07/24/24 03:55 07/24/24 03:55 07/24/24 03:55 07/24/24 03:55 07/24/24 03:55
I&O
07/23/24 07/24/24 07/25/24
06:59 06:59 06:59
Intake Total 1680 / 1680 2700 / 2700 1380 / 1380
Balance 1680 / 1680 2700 / 2700 1380 / 1380
--- NOTE | 2024-07-24 08:00 | PTCARENOTE ---
Patient's BP this AM 137/65, HR on monitor in mid-high 40s sinus darío. Per MD, patient okay to receive scheduled amiodarone.
[2024-07-24] MEDS: NSS 1000 IV (08:28)
[2024-07-24] MEDS: MUCINEX 600 MG PO ×2 (08:29→19:40)
[2024-07-24] MEDS: VITAMIN D3 (cholecalciferol) 25 MCG PO (08:29)
[2024-07-24] MEDS: VITAMIN C 500 MG PO ×2 (08:29→19:40)
[2024-07-24] MEDS: COZAAR 50 MG PO (08:29)
[2024-07-24] MEDS: PACERONE 100 MG PO (08:29)
--- NOTE | 2024-07-24 09:24 | W.PN.UPDATE ---
Update Note
Progress Note Update
Telemetry reviewed this AM. HRs stable, in the 50s, remains in SR. No pauses or high grade AV block seen. Continue to hold Toprol. Will reassess as OP. Continue on amiodarone 100mg daily. Will discuss anticoagulation as OP. Follow up has been
arranged. Cardiology will sign off.
[2024-07-24] MEDS: LOVENOX 40 MG SC (17:06)
[2024-07-24] MEDS: ASPIR LOW (ENTERIC COATED) 81 MG PO (17:06)
[2024-07-24] MEDS: PEPCID 20 MG PO (21:38)
[2024-07-25 06:00] VITALS: BMI 24.9
[2024-07-25 06:47] LABS: Hematocrit 35.3 % (37.0-47.0); Hemoglobin 12.2 g/dL (12.0-16.0); Mean Corp Hgb Conc. 34.6 g/dL (33.0-37.0); Mean Corpuscular Hgb 32.5 pg (27.0-31.0); Mean Corpuscular Volume 94.1 fL (81.0-99.0); Platelet Count 161 10^3/uL (130-400); Red Blood Cell Count 3.75 10^6/uL (4.20-5.40); Red Cell Dist. Width 12.4 % (11.5-14.5); White Blood Cell Count 4.7 10^3/uL (4.8-10.8)
[2024-07-25 07:08] LABS: Blood Urea Nitrogen 22 mg/dl (7-17); Calcium 8.9 mg/dl (8.4-10.2); Carbon Dioxide 22 mmol/L (22-30); Chloride 106 mmol/L (98-107); Estimated Creatinine Clearance 43 ml/min; Glucose 87 mg/dl (70-99); Magnesium 1.9 mg/dl (1.6-2.3); Phosphorus 3.9 mg/dl (2.5-4.5); Potassium 4.3 mmol/L (3.5-5.1); Sodium 140 mmol/L (135-145); eGFR > 60.00
[2024-07-25 07:10] VITALS: BP 154/90
--- NOTE | 2024-07-25 07:12 | W.PN.HOSP.TC ---
Today's Communication/Plan
-
discharge
Assessment / Plan
Assessment / Plan
Physical Exam
General: Comfortable and Conversant no acute distress
HEENT: Anicteric normocephalic atraumatic
Respiratory: Clear and Non Labored Respirations, stable respiratory status on room air
Cardiac: S1/S2, Regular Rhythm and Bradycardia
GI: Soft and Non Tender bowel sounds present
Musculoskeletal: No Clubbing, No Cyanosis and No Edema
Skin: Warm and Dry
Neuro: Awake, Alert and Nonfocal/grossly intact
Psych: Calm
HPI: 78F recent aortic dissection repair, paroxysmal atrial fibrillation, and hypertension p/w dizzy/lightheadedness. Reported she started to feel unwell on Friday (3 days ago) with sore throat and dry cough that started on Friday. Noted poor
sleep past two nights. Morning following she stood up and became diaphoretic, dizzy/lightheaded and thought she was going to pass out. Tested positive for COVID on ED evaluation and noted to be severely bradycardic to 30s. BP stable, admitted for
further mgmt tx.
Near Syncope, patient noted with symptomatic bradycardia
-Monitor on Telemetry
-Hold Metoprolol
-IVF support completed with improvement oral intake
-Orthostatic vitals negative for orthostatic hypotension
-Cardio eval appreciated cont hold home BB, no pauses heart block noted on tele, stable cardiac status, ok to dc telemetry
-ECHO appreciated EF 55-60 no significant valve abn's noted
Episode severe Nausea morning 07/23
denied chest pain
troponin neg
EKG appreciated nonspecific ST abn's
prn Compazine
nausea since resolved
COVID Viral Infection
-Continue supportive care
-ID eval appreciated
Paroxysmal Atrial Fibrillation
-Continue amiodarone with hold parameters for heart rate less than 60
-Hold Metoprolol due to bradycardia, follow up with Cardiology to determine when safe to resume, if necessary to resume, or if an alternative agent is required instead.
-Patient no longer on anticoagulation following left atrial appendage ligation
Essential Hypertension
-Continue losartan with hold parameters for SBP Less Than 120
-Metoprolol on hold due bradycardia
Recent Aortic Dissection s/p Repair
-Continue Aspirin
DVT proph: Lovenox
GI ppx Pepcid
Code Status: Full Code
Medically stable for discharge home with outpatient follow up recommendations.
Total Time Preparing Discharge ___40____ minutes including examination of the patient, summary of the hospital stay, instructions for continuing care to all relevant caregivers; and preparation of discharge records, prescriptions, and referral
forms if necessary.
Anticipated Discharge: Today
Subjective/Interval History
-
Date of Service: July 25, 2024
Seen and examined at bedside in no acute distress sitting up comfortably in chair. Reports feeling well. Ambulating without issues. Breathing well. Eager to go home. Denies new acute issues at this time.
Objective Data
-
Labs:
Laboratory Results
07/25/24
05:20
WBC 4.7 L
Hgb 12.2
Hct 35.3 L
Plt Count 161
Sodium 140
Potassium 4.3
Chloride 106
Carbon Dioxide 22
BUN 22 H
Creatinine 0.9
Glucose 87
Calcium 8.9
Vital Signs:
Vital Signs
Temp Pulse Resp BP Pulse Ox
98.4 F 54 18 135/62 97
07/24/24 23:34 07/24/24 23:34 07/24/24 23:34 07/24/24 23:34 07/24/24 23:34
I&O
07/24/24 07/25/24 07/26/24
06:59 06:59 06:59
Intake Total 2700 / 2700 3200 / 3200
Balance 2700 / 2700 3200 / 3200
[2024-07-25] MEDS: VITAMIN D3 (cholecalciferol) 25 MCG PO (08:41)
[2024-07-25] MEDS: COZAAR 50 MG PO (08:41)
[2024-07-25] MEDS: MUCINEX 600 MG PO (08:41)
[2024-07-25] MEDS: VITAMIN C 500 MG PO (08:41)
[2024-07-25] MEDS: PACERONE 100 MG PO (08:42)
--- NOTE | 2024-07-25 10:26 | CM ---
Addendum entered by Emilia Rubi 07/25/24 11:25:
ALICE discussed pt w/MD. Pt is medically stable for dc today. CM spoke with pt, explained role and discussed dc plan/option. Pt cleared by PT for home w/no needs. ALICE verbally explained IMM to pt- she verbalized understanding. IMM signed, dated and
placed on chart @approx 1120. Pts cousin will be transport her home later this afternoon around 1300.
Original Note:
CM reviewed chart. Pt currently on RA. No skilled needs noted at this time. Plan is for pt to dc home when medically cleared.
CM/SW will continue to follow to ensure a safe and timely discharge.
--- NOTE | 2024-07-25 12:41 | W.DCSUMMARY ---
Discharge Summary
Discharge Data
Date of Admission: 07/23/24
Date of Discharge: 07/25/24
-
Pending Results: No
Discharge Plan
-
Patient Disposition: Home (Routine Discharge)
Discharge Diagnosis/Procedures: Near syncope likely due to COVID
Bradycardia
paroxysmal atrial fibrillation
Hypertension
History Aortic Dissection Repair
Condition: Good
Diet: 2 Gram Sodium
Activity: As tolerated
Driving Restrictions: As prior to admission
Bathing Restrictions: None
Activity Restrictions/Additional Instructions:
Please follow up with primary care provider in 1 week of discharge and keep your appointment with Cardiology.
Hold home metoprolol due to concerns symptomatic Bradycardia. Follow up with primary care provider and/or cardiology to determine when safe to resume, if necessary to resume, and/or if an alternative agent is required.
For COVID it is recommended that you continue to quarantine for 5 days since you tested positive 07/22/24-07/26/24. Following, it is recommended that you continue to mask when around others or outside for 5 more days 07/27/24-07/31/24.
Referrals:
Praful Greenberg MD [Active] - 08/10/24 10:20 am (You have a follow up visit with Dr. Greenberg at the [place] office. Please call with questions. (Note, appointment time now slightly earlier as it is a hospital follow up visit).)
Graham Concepcion MD [Family Provider] - in one week
Prescriptions:
Continued
ascorbic acid (vitamin C) [Vitamin C] 500 MG tablet
500 mg PO BID
multivitamin with folic acid [Tab-A-Tripp] 1 TABLET tablet
1 tab PO DAILY
meclizine 25 mg Tablet
25 mg PO TID PRN (Reason: vertigo)
cholecalciferol (vitamin D3) 25 mcg (1,000 unit) Tablet
25 mcg PO DAILY
losartan 50 mg Tablet
50 mg PO DAILY
amiodarone 200 mg Tablet
100 mg PO DAILY
aspirin 81 mg Tablet,Delayed Release (Dr/Ec)
81 mg PO QPM
acetaminophen [Tylenol Extra Strength] 500 mg Tablet
1,000 mg PO Q6HPRN PRN (Reason: headache)
fluticasone propionate 50 mcg/actuation Crawford,Suspension
1 spray INTRANASAL HSPRN PRN (Reason: allergies)
Systane (PF) 0.4-0.3 % Dropperette
1 drp BOTH EYES BIDPRN PRN (Reason: dry eyes)
Metamucil 3.4 gram/5.4 gram Powder
1 tsp PO DAILY
Held
metoprolol succinate 50 mg Tablet Extended Release 24 Hr
25 mg PO DAILY
Hold Instructions: Follow up with primary care provider and/or Cardiology to determine when safe to resume, if necessary to resume, or if an alternative agent is required instead.
Discharge Orders:
Discharge Patient (As Directed); Ordered 07/25/24
Ordered By: Jean-Pierre Davis
Discharge Date and Time
Print Language: TAMAZIGHT
== END 2024-07-25 15:08 | disposition home or self-care (01) | DRG 308 ==
LOC: 2 NORTH 07:34
PROVIDERS: Physician Assistant Medical; ADMITTING PHYSICIAN Hospitalist; ATTENDING PHYSICIAN Internal Medicine; EMERGENCY PHYSICIAN Emergency Medicine; FAMILY PHYSICIAN Internal Medicine; OTHER PHYSICIAN Internal Medicine Cardiovascular Disease; OTHER PHYSICIAN Internal Medicine Infectious Disease
DX: R00.1 Bradycardia, unspecified (principal); U07.1 COVID-19; I48.0 Paroxysmal atrial fibrillation; R42 Dizziness and giddiness; E78.00 Pure hypercholesterolemia, unspecified; I10 Essential (primary) hypertension; K21.9 Gastro-esophageal reflux disease without esophagitis; R53.1 Weakness; K43.9 Ventral hernia without obstruction or gangrene; R55 Syncope and collapse; F41.9 Anxiety disorder, unspecified; D32.0 Benign neoplasm of cerebral meninges; R11.0 Nausea; Z82.49 Family history of ischemic heart disease and other diseases of the circulatory system; Z88.2 Allergy status to sulfonamides; Z88.1 Allergy status to other antibiotic agents; Z88.5 Allergy status to narcotic agent; Z79.82 Long term (current) use of aspirin; Z79.51 Long term (current) use of inhaled steroids; Z79.01 Long term (current) use of anticoagulants; Z87.891 Personal history of nicotine dependence
CPT/HCPCS: 71045; 80048; 80053; 83735; 84100; 84484; 85025; 85027; 87502; 87811; 93005; 93306; 97161; 97165; 99285

== ENCOUNTER → 2025-01-10 10:38 | Outpatient (REF) | payer MEDICARE, OTHER, SELFPAY | LOC: RAD 10:38 | PROVIDERS: ATTENDING PHYSICIAN Nurse Practitioner; FAMILY PHYSICIAN Internal Medicine; OTHER PHYSICIAN Internal Medicine Cardiovascular Disease | DX: I71.010 Dissection of ascending aorta (principal) | CPT/HCPCS: 71275; 74174; Q9967 ==

== ENCOUNTER → 2025-04-19 13:09 | Outpatient (REF) | payer MEDICARE, OTHER, SELFPAY ==
[2025-04-19 17:29] LABS: Urine Character Slightly Cloudy (Clear)
[2025-04-19 17:43] LABS: Urine Red Blood Cell 0-2 /HPF (0-2); Urine Squamous Cell 0-2 /LPF (Few)
[2025-04-19 17:44] LABS: Urine White Cell >100 /HPF (0-5)
== END ==
LOC: CLAB 13:09
PROVIDERS: ATTENDING PHYSICIAN Internal Medicine
DX: N30.00 Acute cystitis without hematuria (principal)
CPT/HCPCS: 81003; 81015; 87077; 87086; 87186

== ENCOUNTER 2025-05-07 00:13 | Inpatient (IN) | payer MEDICARE, OTHER, SELFPAY ==
[2025-05-06 18:32] VITALS: BP 172/98
[2025-05-06 18:59] LABS: Hematocrit 34.7 % (37.0-47.0); Hemoglobin 12.1 g/dL (12.0-16.0); Mean Corp Hgb Conc. 34.9 g/dL (33.0-37.0); Mean Corpuscular Volume 94.3 fL (81.0-99.0); Nucleated Red Blood Cells % 0 %; Platelet Count 190 10^3/uL (130-400); Red Cell Dist. Width 11.8 % (11.5-14.5)
[2025-05-06 19:23] LABS: ALT (SGPT) 14 U/L (0-35); AST (SGOT) 27 U/L (14-36); Albumin 4.3 g/dl (3.5-5.0); Alkaline Phosphatase 67 U/L (38-126); Blood Urea Nitrogen 15 mg/dl (7-17); Calcium 9.0 mg/dl (8.4-10.2); Carbon Dioxide 22 mmol/L (22-30); Chloride 95 mmol/L (98-107); Glucose 104 mg/dl (70-99); Potassium 4.7 mmol/L (3.5-5.1); Sodium 124 mmol/L (135-145); Total Protein 7.0 g/dl (6.3-8.2); eGFR > 60.00
[2025-05-06 19:25] LABS: Troponin I < 0.012 ng/ml
[2025-05-06 19:55] VITALS: BP 116/56
[2025-05-06 19:56] LABS: Glucose - Point of Care 126 mg/dl (70-99)
[2025-05-06 20:00] VITALS: BP 124/70
[2025-05-06] MEDS: NSS 1000 IV (20:21)
[2025-05-06 20:23] VITALS: BMI 24.8
[2025-05-06] MEDS: ZOFRAN 4 MG IV (20:26)
[2025-05-06 20:54] LABS: APTT 24.5 Sec (23.4-35.0); INR 1.06; PT 14.1 Sec (11.4-14.6)
[2025-05-06 21:00] VITALS: BP 138/55
[2025-05-06 21:06] LABS: Magnesium 2.2 mg/dl (1.6-2.3)
[2025-05-06 21:18] LABS: Troponin I < 0.012 ng/ml
--- NOTE | 2025-05-06 21:37 | ED.GENMED ---
History of Present Illness
General
Chief Complaint: Abdominal Symptoms
Time Seen by Provider: 05/06/25 20:09
Nursing documentation reviewed up to this point in time: agreed with
History of Present Illness
History of Present Illness:
79-year-old female presents to the ER for evaluation of lower abdominal discomfort along with nausea and vomiting today. Patient states that she had seen her primary care physician due to urinary discomforts and incontinence today. She was started
on an antibiotic which she completed yesterday. She states that she was seen at the doctor's office because she was still having urinary discomfort and feeling as though she could not urinate. She subsequently was given a new prescription for
antibiotic which she has not yet started. She had multiple episodes of vomiting today was feeling very lightheaded and dizzy on arrival to the ER. She had a syncopal episode in a chair and was incontinent of stool. She is reporting some lower
back discomfort. She denies fevers or chills. She denies severe pain at the current time.
Past History
Past History
ED Past Medical History: Arrthythmia (Atrial fibrillation), GERD, HTN, Hypercholesterolemia and Other (benign positional vertigo)
ED Past Surgical History: Cardiac (Aortic dissection surgery) and Other (hernia, bladder sling)
Social History
Tobacco: Former smoker
Alcohol: None
Drug: None
Personal:
Living: with family
Employment: Employed
Family History
Family History: Other
Phy Exam
Physical Exam
Physical Exam:
Vital signs reviewed, patient is awake, alert, elderly, appears apprehensive, mild pallor, mucous membranes tacky, heart regular rate and rhythm bradycardic, no murmurs or ectopy, lungs are clear to auscultation without wheezes rales or rhonchi,
abdomen is soft and nontender on palpation, 2+ femoral DP and radial pulses present symmetric, extremities are cool, pale with mild delayed cap refill, GCS is 15
Course
Orders/Labs/Results
Orders:
Orders
05/06/25 18:37
Electrocardiogram (*1) Urgent
Reason for Study: Vertigo / Dizzy
05/06/25 18:38
EKG- Treatment ONCE
05/06/25 18:50
CMP [Comprehensive Metabolic Panel] Urgent
Complete Blood Count/With Diff Urgent
Troponin I Urgent
05/06/25 20:16
Ondansetron Injectable [Zofran] 4 mg IV NOW STA
05/06/25 20:19
0.9% Sodium Chloride 1000 ml [Nss] 1,000 ml IV BOLUS
05/06/25 20:22
Bladder Scan- Treatment ONCE
05/06/25 20:24
CT Chest/abd/pelvis Angio W/wo Urgent
Comment:
Reason For Exam: syncope, vomiting
05/06/25 20:36
Lactic Acid Q4H
Comment: CANCEL 2nd LACTIC ACID IF 1st LACTIC ACID IS LESS THAN 2
Magnesium Urgent
PTT Urgent
Prothrombin Time Urgent
Troponin I Urgent
05/06/25 22:03
Urinalysis Reflex To Culture Urgent
Date Specimen was Collected: 05/06/25
Time Specimen was Collected: 18:37
05/06/25 23:01
Osmolality, Random Urine Urgent
Serum Osmolality Urgent
Urine Creatinine Urgent
Urine Sodium Urgent
Abnormal Lab Results
05/06/25 05/06/25 05/06/25
18:50 19:54 22:03
RBC 3.68 L 10^6/uL
(4.20-5.40)
Hct 34.7 L %
(37.0-47.0)
MCH 32.9 H pg
(27.0-31.0)
Lymphocytes % 20.1 L %
(20.5-51.1)
Sodium 124 L mmol/L
(135-145)
Chloride 95 L mmol/L
(98-107)
Glucose 104 H mg/dl
(70-99)
Urine Ketones 2+ A
(Negative)
POC Glucose 126 H mg/dl
(70-99)
05/06/25 18:50
05/06/25 18:50
Hyponatremia noted on labs, kidney function preserved. CBC reassuring. Initial troponin negative
Vital Signs
Initial and Last Documented VS:
Initial Vital Signs
Temp Pulse Resp BP Pulse Ox
97.8 F 98 16 172/98 99
05/06/25 18:32 05/06/25 18:32 05/06/25 18:32 05/06/25 18:32 05/06/25 18:32
Last Documented Vital Signs
Temp Pulse Resp BP Pulse Ox
97.8 F 53 16 129/57 95
05/06/25 18:32 05/06/25 22:03 05/06/25 22:03 05/06/25 22:03 05/06/25 22:03
MDM/Problems Addressed
Differential Diagnosis Includes:
Differential diagnosis considered but not limited to vasovagal episode, gastroenteritis, gastritis, aortic aneurysm, antibiotic related colitis, along with other etiologies considered
Chronic conditions affecting care:
Atrial fibrillation, advanced age, history of aortic dissection, hypertension, hyperlipidemia, bradycardia, bladder prolapse
*Radiology
Radiology exam reviewed: radiology read reviewed
*Pulse Oximetry
SaO2: 98
Oxygen Mode of Delivery: Room air
Patient hypoxic: no
*EKG
Interpreted by ED Provider?: Yes (I independently viewed and interpreted twelve-lead EKG showing sinus bradycardia, rate 55, leftward axis, no ST elevation, this is an abnormal tracing without evidence for acute ischemia, similar to prior from
07/24/2024)
*Command And Control Interpretation
Rate: bradycardiac (I independently viewed and interpreted rhythm strip showing sinus bradycardia, no ectopy)
*Critical Care Note
Total Time (30-74mins, 75-104mins- exclusive of procedures): Not Applicable
Update Note
Update Note:
Patient feeling much better after IV fluids. I reviewed all test results with patient including presence of new hyponatremia, no acute process seen on CT angio chest abdomen and pelvis. I discussed with her benefit of admission for further
evaluation and care, in particular given the significant syncopal event that occurred in the waiting room. Patient agrees with plan occurring. I reviewed full patient presentation with hospitalist who accepts patient for admission.
ED Attending Note
-
Portions of this chart may have been created with voice recognition software.� Occasional wrong word or��sound alike� substitutions may have occurred due to the inherent limitations of voice recognition software.
Discharge Plan
Departure
Patient Disposition: Admit
Date of Disposition: 05/06/25
Time of Disposition: 23:01
Presentation/result/management discussed w/ accepting MD/DO: Hospitalist
Discharge Problem:
Acute hyponatremia, Syncope, Vomiting, Urinary incontinence
Prescriptions:
No Action
ascorbic acid (vitamin C) [Vitamin C] 500 MG tablet
500 mg PO BID
multivitamin with folic acid [Tab-A-Tripp] 1 TABLET tablet
1 tab PO DAILY
meclizine 25 mg Tablet
25 mg PO TID PRN (Reason: vertigo)
cholecalciferol (vitamin D3) 25 mcg (1,000 unit) Tablet
25 mcg PO DAILY
losartan 50 mg Tablet
50 mg PO DAILY
aspirin 81 mg Tablet,Delayed Release (Dr/Ec)
81 mg PO QPM
acetaminophen [Tylenol Extra Strength] 500 mg Tablet
1,000 mg PO Q6HPRN PRN (Reason: headache)
Systane (PF) 0.4-0.3 % Dropperette
1 drp BOTH EYES BIDPRN PRN (Reason: dry eyes)
Metamucil 3.4 gram/5.4 gram Powder
1 tsp PO DAILY
docusate sodium [Colace] 100 mg Capsule
100 mg PO DAILY
Referrals:
UNKNOWN - PT DOES,NOT KNOW [Family Provider]
Interventions
Interventions:
*Risk Screen - Suicide Last Done: 05/06/25 18:32
*General Assessment Last Done: 05/06/25 19:56
*Neglect/Abuse Screening Last Done: 05/06/25 18:32
*ED- Fall Risk Assessment Last Done: 05/06/25 19:56
*ED COVID-19 Vaccine History Last Done: 05/06/25 19:56
[id number]-[id number] Assessment Last Done: 05/06/25 20:09
Discharge Date and Time
Print Language: DANISH
[2025-05-06 22:03] VITALS: BP 129/57
[2025-05-06 22:08] LABS: Urine Character Clear (Clear)
[2025-05-06 23:00] VITALS: BP 131/50
--- NOTE | 2025-05-06 23:29 | HPS.HSE ---
Family Physician
-
Family Physician: NOT KNOW UNKNOWN - PT DOES
Chief Complaint
-
Vomiting
History of Present Illness
Patient is a 79-year-old with past medical history significant for hypertension, aortic dissection status post repair, atrial fibrillation, hyperlipidemia, presenting to the emergency department with abdominal discomfort and nausea and vomiting.
Patient was seen in primary care for urinary symptoms and incontinence. She received antibiotics and completed a 2nd course yesterday. Despite completion of antibiotics she was still having urinary discomfort urinary urgency so was seen in the
doctor's office and was given a new prescription. She told me that she was going to start taking Pyridium while waiting for a repeat urine sample which she was unable to give due to urinary retention.
Patient stated that today she only had breakfast. Throughout the day she has had abdominal discomfort and nausea and vomiting. She does not have any fevers or chills. She denies having any headaches. She denies any vertigo. She stated that she
felt lightheaded while she was in the emergency department waiting to be seen. Spouse tried to get her to the desk and she became syncopal. There was no complete loss of consciousness but she did collapse to the floor. She did not remember what
happened. She had had a incontinence of stool. She does report some lower back discomfort. She stated that she has since been laying down in the emergency department and she has been having polyuria now with very clear appearing urine.
In the emergency department she had a blood pressure of 130/57 with a pulse rate of 53 and she was satting 95% on room air. CBC was unremarkable. Electrolytes notable for a sodium of 124 but otherwise unremarkable. BUN and creatinine were normal
at 15 and 0.8. ECG shows sinus bradycardia at a rate of 55.
CT of the chest abdomen pelvis: Status post repair of dissection of the ascending aorta and right innominate artery. Stable appearance compared to CT angiography of January 10, 2025.
Medical History
Past Medical History
Past Medical History: Reports Other
Additional Past Medical History:
Aortic Dissection
Paroxysmal Atrial Fibrillation
Essential Hypertension
Hyperlipidemia
Past Surgical History: Reports Other
Additional Past Surgical History:
Aortic Dissection Repair
Tonsillectomy
D&C
Ventral Hernia
Prolapsed Bladder
Social History
Tobacco: Former Smoker (Quit over 20 years ago)
Alcohol: None
Living: Alone
Family History
Family History: Not pertinent
Allergies / Home Medications
Allergies reflects when Allergies were last updated in [facility].
Home Medications with original date entered in [facility]
Allergy/Medication List:
Allergies
Allergy/AdvReac Type Severity Reaction Status Date / Time
codeine Allergy Severe Verified 05/30/24 12:11
Nausea
Sulfa (Sulfonamide Allergy Tongue Verified 05/30/24 12:11
Antibiotics) Swelling
tetracycline [Tetracycline] Allergy Extreme Verified 05/30/24 12:11
stomach
pain
Home Medications
ascorbic acid (vitamin C) 500 mg tablet (Vitamin C) 1,000 mg PO DAILY Supplement 04/13/14
multivitamin with folic acid 400 mcg tablet (Tab-A-Rtipp) 1 tab PO DAILY Supplement 11/19/21
cholecalciferol (vitamin D3) 25 mcg (1,000 unit) tablet 25 mcg PO DAILY 03/07/24
meclizine 25 mg tablet 25 mg PO TID PRN vertigo 03/07/24
acetaminophen 500 mg tablet (Tylenol Extra Strength) 1,000 mg PO Q6HPRN PRN headache 07/22/24
amiodarone 200 mg tablet 100 mg PO DAILY 07/22/24
aspirin 81 mg tablet,delayed release 81 mg PO QPM 07/22/24
fluticasone propionate 50 mcg/actuation nasal spray,suspension 1 spray intranasal HSPRN PRN allergies 07/22/24
losartan 50 mg tablet 50 mg PO DAILY 07/22/24
metoprolol succinate 50 mg tablet,extended release 24 hr 25 mg PO DAILY 07/22/24
peg 400-propylene glycol (PF) 0.4 %-0.3 % eye drops in a dropperette (Systane (PF)) 1 drp BOTH EYES BIDPRN PRN dry eyes 07/22/24
psyllium husk 3.4 gram/5.4 gram oral powder (Metamucil) 1 tsp PO DAILY 07/22/24
Review of Systems
-
Constitutional: Reports No Symptoms
EENT: Reports No Symptoms
Respiratory: Reports No Symptoms
Cardiac: Reports No Symptoms
Abdomen/GI: Reports Nausea and Vomiting
: Reports Frequency, Difficulty Voiding and Urgency
Musculoskeletal: Reports No Symptoms
Skin: Reports No Symptoms
Neurological: Reports No Symptoms
Endocrine: Reports No Symptoms
Hematologic/Lymphatic: Reports No Symptoms
Psych: Reports No Symptoms
Physical Exam
Vital Signs
Vital Signs
Temp Pulse Resp BP Pulse Ox
97.8 F 53 16 129/57 95
05/06/25 18:32 05/06/25 22:03 05/06/25 22:03 05/06/25 22:03 05/06/25 22:03
Physical Exam
General: Comfortable and Conversant
HEENT: Anicteric and Other (Facemask over mouth and nose)
Respiratory: Clear and Non Labored Respirations
Cardiac: S1/S2, Regular Rhythm and Bradycardia
GI: Soft and Non Tender
Rectal: Deferred by Provider
Musculoskeletal: No Clubbing, No Cyanosis and No Edema
Skin: Warm and Dry
Neuro: Awake, Alert and Nonfocal/grossly intact
Psych: Calm
Laboratory Results
-
05/06/25 18:50
05/06/25 18:50
Laboratory Results
PT 14.1 Sec (11.4-14.6) 05/06/25 20:36
INR 1.06 05/06/25 20:36
APTT 24.5 Sec (23.4-35.0) 05/06/25 20:36
Lactic Acid 1.2 mmol/L (0.7-2.0) 05/06/25 20:36
Total Bilirubin 1.0 mg/dl (0.2-1.3) 05/06/25 18:50
AST 27 U/L (14-36) 05/06/25 18:50
ALT 14 U/L (0-35) 05/06/25 18:50
Alkaline Phosphatase 67 U/L (38-126) 05/06/25 18:50
Troponin I < 0.012 ng/ml 05/06/25 20:36
Data Reviewed
-
CT Scan: Report Reviewed by me
Medical Tests (Nuc Med, Echo, EKG etc): Image Personally Visualized and interpreted
Lab Data: Labs Reviewed by me
Old Records: Reviewed
Impression/Plan
-
IMPRESSION:
79 Female with episode of N/V after starting abx for uti. Syncopal episode while in waiting room. U/A is negative here. Found to have hyponatremia to 124.
PLAN:
Hyponatremia - Na 124. Unclear duration given no recent labs. SG 1.005. Urine Na 91 and Osm 260 suggestive of SIADH or possibly salt wasting if hypotensive. She has no focal neurological deficits to suggest an acute intracranial process. The
rest of her vitals are also normal except for some bradycardia.
- admit to tele
- fluid resuscitation and check orthostatics
- checking tsh and cortisol
- free water restriction
- repeat sodium q 6 hours
- nephrology consultation
Syncope - Suspect vasovagal given n/v but cannot rule out cardiac. She has sinus bradycardia on ECG as well as on telemetry with rates in the 50s. CT angio is negative
- telemetry
- check orthostatics
- cycle cardiac enzymes
- antiemetics and meclizine prn
- hold losartan
- cardiology consult if HR goes below 50s
UTI - no evidence of uti currently
- d/c abx
DVT PPX - lovenox sq
Code Status - Full Code
[2025-05-07] VITALS (8 sets, daily range): BP systolic 113–159; BP diastolic 55–78; PULSE 61–81; BMI 25.6
[2025-05-07] MEDS: NSS 1000 IV ×2 (00:19→06:09)
[2025-05-07 00:48] LABS: Blood Urea Nitrogen 14 mg/dl (7-17); Calcium 8.3 mg/dl (8.4-10.2); Carbon Dioxide 22 mmol/L (22-30); Chloride 98 mmol/L (98-107); Estimated Creatinine Clearance 54 ml/min; Glucose 106 mg/dl (70-99); Potassium 4.6 mmol/L (3.5-5.1); Sodium 125 mmol/L (135-145); eGFR > 60.00
[2025-05-07 00:56] LABS: Troponin I < 0.012 ng/ml
--- NOTE | 2025-05-07 04:14 | W.PN.UPDATE ---
Update Note
Progress Note Update
Patient is bradycardia with hr 30s-40s, bp 141/61, RR 18, afebrile. Asymptomatic. Cardiology consult placed as discussed with the admitting physician.
--- NOTE | 2025-05-07 04:48 | TRANSFER ---
Pt came to 3W from ED via stretcher. Pt pulled over to hospital bed. Pt bradycardic oil field operator notified, cardiac consult ordered. Pt aaox3, oriented to room, call arnett within reach, plan of care ongoing.
[2025-05-07 09:05] LABS: Hematocrit 33.6 % (37.0-47.0); Hemoglobin 11.6 g/dL (12.0-16.0); Mean Corp Hgb Conc. 34.5 g/dL (33.0-37.0); Mean Corpuscular Volume 95.7 fL (81.0-99.0); Platelet Count 181 10^3/uL (130-400); Red Cell Dist. Width 11.9 % (11.5-14.5)
[2025-05-07 09:43] LABS: Blood Urea Nitrogen 11 mg/dl (7-17); Calcium 8.6 mg/dl (8.4-10.2); Carbon Dioxide 24 mmol/L (22-30); Chloride 107 mmol/L (98-107); Estimated Creatinine Clearance 47 ml/min; Glucose 77 mg/dl (70-99); Magnesium 2.4 mg/dl (1.6-2.3); Potassium 4.7 mmol/L (3.5-5.1); Sodium 136 mmol/L (135-145); eGFR > 60.00
[2025-05-07 10:08] LABS: Cortisol, Random 14.1 ug/dl; TSH 2.81 uIU/ml (0.47-4.68)
--- NOTE | 2025-05-07 10:12 | W.CON.NEPH ---
Consultation
-
Date/Time Consultation Requested: 05/07/25 0155
Date/Time Consultation Performed: 05/07/25 1000
Requesting Provider: Aleyda Pringle MD
Performing Provider: Leola Pineda
Reason for Consultation: hyponatremia
Medical History
-
History of Present Illness:
79-year-old with past medical history significant for hypertension on Losartan, aortic dissection status post repair, atrial fibrillation, hyperlipidemia, presenting to the emergency department with abdominal discomfort and nausea and vomiting last
night.
She was treated for UTI with keflex for the last 10 days with recurrent symptoms, she was about to start another course of antibiotic and meantime she was given prescription for Pyridium which she didn't get filled yet. Last evening she noticed
with the abdominal discomfort and nausea vomiting, also felt that she could not urinate. [place] very dizzy so came into the ER. While waiting in the ER she almost had syncope. no hypotension noted. Laboratory data noted to have sodium 124. CT
chest abdomen pelvis with contrast did not reveal any acute findings. She Had intermittent history of hyponatremia. No fever or chest pain or shortness of breath. No lower extremity edema. She reports no change in the diet.
She started on the normal saline at 1 50 cc/h and sodium was up to 125 during the night, this morning labs are pending.
Nephrology consult for managing hyponatremia.
Past Medical History
Aortic Dissection
Paroxysmal Atrial Fibrillation
Essential Hypertension
Hyperlipidemia
Past Surgical History: Other (Aortic Dissection Repair Tonsillectomy D&C Ventral Hernia Prolapsed Bladder)
Social History
Tobacco: Former Smoker
Alcohol: None
Drug: None
Living: Alone
Family History
Family History: Not Pertinent
Allergies / Home Medications
Allergy/AdvReac Type Severity Reaction Status Date / Time
codeine Allergy Severe Verified 05/30/24 12:11
Nausea
Sulfa (Sulfonamide Allergy Tongue Verified 05/30/24 12:11
Antibiotics) Swelling
tetracycline (Tetracycline) Allergy Extreme Verified 05/30/24 12:11
stomach
pain
�Medication �Instructions �Recorded �Confirmed �Type
ascorbic acid (vitamin C) 500 mg 500 mg PO BID Supplement 04/13/14 05/06/25 History
tablet (Vitamin C)
multivitamin with folic acid 400 1 tab PO DAILY Supplement 11/19/21 05/06/25 History
mcg tablet (Tab-A-Tripp)
cholecalciferol (vitamin D3) 25 25 mcg PO DAILY Supplement 03/07/24 05/06/25 History
mcg (1,000 unit) tablet
meclizine 25 mg tablet 25 mg PO TID PRN vertigo 03/07/24 05/06/25 History
acetaminophen 500 mg tablet 1,000 mg PO Q6HPRN PRN headache 07/22/24 05/06/25 History
(Tylenol Extra Strength)
aspirin 81 mg tablet,delayed 81 mg PO QPM Blood Clot 07/22/24 05/06/25 History
release Prevention/Tx
losartan 50 mg tablet 50 mg PO DAILY Blood Pressure 07/22/24 05/06/25 History
peg 400-propylene glycol (PF) 0.4 1 drp BOTH EYES BIDPRN PRN dry eyes 07/22/24 05/06/25 History
%-0.3 % eye drops in a dropperette
(Systane (PF))
psyllium husk 3.4 gram/5.4 gram 1 tsp PO DAILY Constipation 07/22/24 05/06/25 History
oral powder (Metamucil)
docusate sodium 100 mg capsule 100 mg PO DAILY 05/06/25 05/06/25 History
(Colace)
Review of Systems
-
All other systems: Negative unless noted
Physical Exam
Vital Signs
Vital Signs
Temp Pulse Resp BP Pulse Ox
97.6 F 54 16 142/66 99
05/07/25 07:00 05/07/25 07:00 05/07/25 07:00 05/07/25 07:00 05/07/25 07:00
Lab Results
WBC 5.0 10^3/uL (4.8-10.8) 05/07/25 07:48
RBC 3.51 10^6/uL (4.20-5.40) L 05/07/25 07:48
Hgb 11.6 g/dL (12.0-16.0) L 05/07/25 07:48
Hct 33.6 % (37.0-47.0) L 05/07/25 07:48
Plt Count 181 10^3/uL (130-400) 05/07/25 07:48
Sodium 136 mmol/L (135-145) D 05/07/25 07:48
Potassium 4.7 mmol/L (3.5-5.1) 05/07/25 07:48
Chloride 107 mmol/L (98-107) 05/07/25 07:48
Carbon Dioxide 24 mmol/L (22-30) 05/07/25 07:48
BUN 11 mg/dl (7-17) 05/07/25 07:48
Creatinine 0.8 mg/dL (0.6-1.0) 05/07/25 07:48
eGFR > 60.00 05/07/25 07:48
Glucose 77 mg/dl (70-99) 05/07/25 07:48
Calcium 8.6 mg/dl (8.4-10.2) 05/07/25 07:48
Albumin 4.3 g/dl (3.5-5.0) 05/06/25 18:50
Physical Exam
General: Awake, Alert, Oriented, AOx3, No Distress and Nontoxic
HEENT: Anicteric, Conjunctivae Clear, Ear/Nose Intact, Facial Symmetry and Neck Supple
Respiratory: Clear, Normal Excursion and Nonlabored Respirations
Cardiac: S1/S2 and Regular Rate/Rhythm
Breast: Deferred by me
Abdomen: Soft, Nontender and Nondistended
Musculoskeletal: No Cyanosis and No Edema
Skin: No Rash
Neuro: Nonfocal/Grossly Intact
Psych: Mood/afflect pleasant, Insight/judgement good and Appropriate
Data Reviewed
-
Labs: Labs Reviewed by me and Discussed with Patient
Assessment/Plan
-
IMP:
Hyponatremia
Syncope
UTI
Aortic Dissection
Paroxysmal Atrial Fibrillation
Essential Hypertension
Hyperlipidemia
Plan:
A/w n/v, lorenzo syncope in ER
Hyponatremia likely hypovolemia
U osmo 275, U na high 91 but post IVF
TSH and cortisol is normal
wait sodium level this am , likely mod FR today if possible based in na level
will decrease IVF rate as Bp stable
cards follows for syncope
d/w pt
--- NOTE | 2025-05-07 10:46 | CON.CAR ---
Addendum entered and electronically signed by Mio James DO 05/07/25 11:50:
I saw and examined the patient.
The Risk Compliance Manager's note was reviewed and I agree with the note.
Comment:
Patient seen and examined. No acute events overnight. Patient resting comfortably in bed reporting significant improvement in symptoms. Patient has no further episodes of lightheadedness, dizziness, near syncope. Patient's received IV fluids and
antibiotics. Telemetry demonstrates sinus bradycardia/sinus rhythm with one-to-one conduction no evidence of AV block or pauses. Patient has a longstanding history of sinus bradycardia.
GENERAL: no acute distress
EYE: sclera anicteric
NECK: Supple, no JVD, no carotid bruit appreciated
ENT: normal nose, moist mucosal membranes
CARDIAC: Bradycardic rate and regular rhythm, +S1/S2, no murmur, rubs, or gallops
CHEST/PULMONARY: Normal effort, clear breath sounds
ABDOMEN: Soft, without focal tenderness or distention
NEUROLOGICAL: Alert and oriented x3
SKIN: Warm and dry, no rash
PSYCH: Normal and appropriate interaction.
EKG sinus bradycardia 55 bpm no significant change from prior
A/P as below
Patient with longstanding sinus bradycardia for which she is asymptomatic. Patient presented with urinary tract infection, dehydration, nausea, vomiting with near syncope and syncope likely related to dehydration and infection.
Symptoms have resolved following hydration and antibiotic therapy
Patient not on AV quynh blocking agents, will continue to avoid these
Supportive care per primary service and electrolyte management
Follow-up as outpatient arranged, will sign off, please call with questions.
Original Note:
Consultation
Consultation Request
Date/Time Consultation Performed: 05/07/25
Requesting Provider: Dr. Bates
Performing Provider: Medina Carmona PA-C for Dr. James
Reason for Consultation: bradycardia, syncope
Medical History
-
Chief Complaint: weakness, N/V, lightheadedness
History of Present Illness:
HPI: Shasta is a 78 year old female with PMH of type A aortic dissection s/p repair, paroxysmal atrial fibrillation with history of left atrial appendage ligation, bradycardia, HLD, GERD, anxiety, and frontal meningioma. She states she has been
treated for UTI with cephalexin for the last 7 days, last dose was yesterday. She reports for several days feeling improved, however then yesterday felt significantly weak and had inability to urinate, states she was 'dribbling'. She also reports
worsening fatigue and lightheadedness. She then noted nausea and vomiting. She called 911 who brought her to the ER. While in the ER she had a syncopal episode. She was noted to be bradycardic on telemetry in ER, resulting in cardiology
consultation. She has history of baseline sinus bradycardia and previously amiodarone and Toprol were discontinued due to this. She is feeling much improved status post IV hydration. Was noted to have hyponatremia with sodium of 124.
PMH:
Type A aortic dissection s/p repair 03/2024
Sinus bradycardia
Paroxysmal atrial fibrillation
s/p LEELA ligation, no OAC
Dyslipidemia
GERD
Anxiety
h/o R frontal meningioma
FH of premature CAD
Past Medical History
Past Medical History: Other (in HPI)
Past Surgical History: Cardiac (Aortic dissection repair w/ aortic valve resuspension and ascending hemiarch replacement 03/2024), Tonsilectomy and Other (Ventral hernia repair, bladder sling)
Social History
Tobacco: Former Smoker
Alcohol: None
Drug: None
Living: Alone
Employment: Employed ([employer])
Family History
Family History: Early CAD and Other (aneurysms in brother)
Allergies / Home Medications
Allergy/AdvReac Type Severity Reaction Status Date / Time
codeine Allergy Severe Verified 05/30/24 12:11
Nausea
Sulfa (Sulfonamide Allergy Tongue Verified 05/30/24 12:11
Antibiotics) Swelling
tetracycline (Tetracycline) Allergy Extreme Verified 05/30/24 12:11
stomach
pain
�Medication �Instructions �Recorded �Confirmed �Type
ascorbic acid (vitamin C) 500 mg 500 mg PO BID Supplement 04/13/14 05/06/25 History
tablet (Vitamin C)
multivitamin with folic acid 400 1 tab PO DAILY Supplement 11/19/21 05/06/25 History
mcg tablet (Tab-A-Tripp)
cholecalciferol (vitamin D3) 25 25 mcg PO DAILY Supplement 03/07/24 05/06/25 History
mcg (1,000 unit) tablet
meclizine 25 mg tablet 25 mg PO TID PRN vertigo 03/07/24 05/06/25 History
acetaminophen 500 mg tablet 1,000 mg PO Q6HPRN PRN headache 07/22/24 05/06/25 History
(Tylenol Extra Strength)
aspirin 81 mg tablet,delayed 81 mg PO QPM Blood Clot 07/22/24 05/06/25 History
release Prevention/Tx
losartan 50 mg tablet 50 mg PO DAILY Blood Pressure 07/22/24 05/06/25 History
peg 400-propylene glycol (PF) 0.4 1 drp BOTH EYES BIDPRN PRN dry eyes 07/22/24 05/06/25 History
%-0.3 % eye drops in a dropperette
(Systane (PF))
psyllium husk 3.4 gram/5.4 gram 1 tsp PO DAILY Constipation 07/22/24 05/06/25 History
oral powder (Metamucil)
docusate sodium 100 mg capsule 100 mg PO DAILY 05/06/25 05/06/25 History
(Colace)
Review of Systems
-
History Source: Patient
All other systems: Negative unless noted
Physical Exam
Vital Signs
Temp Pulse Resp BP Pulse Ox
97.6 F 54 16 142/66 99
05/07/25 07:00 05/07/25 07:00 05/07/25 07:00 05/07/25 07:00 05/07/25 07:00
Lab Results
05/07/25 07:48
05/07/25 07:48
Troponin I Cancelled 05/07/25 13:55
Physical Exam
General: No Apparent Distress and Comfortable
HEENT: Normocephalic, Anicteric and Moist Mucous Membranes
Respiratory: Clear and Non Labored Respirations
Cardiac: S1/S2, Regular Rhythm and Other (bradycardic)
GI: Soft, Non Tender, Non Distended and Normal Bowel Sounds
Musculoskeletal: No Clubbing, No Cyanosis and No Edema
Skin: Warm and Dry
Neuro: AO x 3
Impression / Plan
-
Primary parts analyst: Dr. Greenberg
Assessment:
Presentation with weakness, lightheadedness
Recent UTI
Dysuria
Hyponatremia
Syncope
Sinus bradycardia
Type A aortic dissection s/p repair 03/2024
Paroxysmal atrial fibrillation
s/p LEELA ligation, no OAC
Dyslipidemia
GERD
Anxiety
h/o R frontal meningioma
FH of premature CAD
ECHO 07/2024: EF 55 to 60%, mild MR, trace AR, PAP 30 to 35 mmHg, mild [place], no pleural effusion present
Plan:
- Patient presented with weakness and lightheadedness in the setting of recent treatment for UTI. Had syncopal episode in waiting room. Found to be hyponatremic with sodium of 124
- Sodium level improved with IV hydration, now normalized at 136
- UA was unremarkable
- Cardiology consulted due to sinus bradycardia in setting of above events. Patient presently without lightheadedness or dizziness. She has history of known sinus bradycardia. She is not on AV quynh blocking agents as an outpatient.
- TSH normal
- Echo less than 1 year ago, 07/2024 with results as above
- Suspected syncopal etiology vasovagal in setting of nausea/vomiting, hyponatremia
- Review of telemetry sinus bradycardia without pauses or A-V dissociation
- Could consider for outpatient monitor if with recurrent symptoms. She also reported some palpitations while taking cephalexin which have resolved.
- Will arrange outpatient cardiac follow-up
Data Reviewed
-
EKG: Tracing Personally Visualized and interpreted
Medical Tests (Nuc Med, Echo etc): Report Reviewed by me
Labs: Labs Reviewed by me
Old Records: Reviewed
--- NOTE | 2025-05-07 14:49 | W.PN.HOSP.TC ---
Today's Communication/Plan
-
Assessment / Plan
Assessment / Plan
General: No Apparent Distress, Comfortable and Conversant
HEENT: NormoCephalic, Moist mucous membranes, Atraumatic
Respiratory: Clear and Non Labored Respirations
Cardiac: S1/S2 and Regular Rhythm; No Rub or Gallop
GI: Soft, Non Tender, Non Distended and Normal Bowel Sounds
Musculoskeletal: No Edema, no deformity
Skin: Warm and dry
: NO Carey
Neuro: Awake, Alert, Nonfocal/grossly intact
Psych: Calm and Intact Judgment/Insight
Ms. Ramírez is a 79-year-old female with medical history of hypertension, aortic dissection (status post repair), and A-fib who presented with abdominal discomfort with nausea and vomiting. She also had an episode of near syncope and collapse at
home. She has had recent outpatient treatment for urinary tract infection. In the ED she was found to be normotensive and mildly bradycardic with a heart rate in the 40s to 50s, saturating appropriately on room air and afebrile. Labs revealed a
serum sodium of 124 (baseline appears to be 140), with no leukocytosis. She was given IV fluids and admitted for further evaluation and management.
Symptomatic hyponatremia:
- Status post IV fluids, fluids now discontinued
- Continue moderate fluid restriction
- Serum sodium levels continue to improve, mental status has resolved to baseline, will monitor
- Abdominal discomfort has resolved, tolerating regular diet
- Presenting symptoms do not appear to be related to her bradycardia which is chronic and close to her baseline, continuing to monitor on telemetry, cardiology have no plans for intervention and have signed off
- Nephrology following, appreciate guidance
DVT prophylaxis: Lovenox
CODE STATUS: Full code
Total time spent on today's encounter was 40 minutes
Anticipated Discharge: 24 - 48 hours
Subjective/Interval History
-
Date of Service: May 07, 2025
Patient was seen and examined at bedside this morning. Feeling well. Discontinued IV fluids. Hyponatremia improving with fluid restriction.
Objective Data
-
Labs:
Laboratory Results
05/07/25 05/07/25
07:48 18:00
WBC 5.0
Hgb 11.6 L
Hct 33.6 L
Plt Count 181
Sodium 136 D Pending
Potassium 4.7 Pending
Chloride 107 Pending
Carbon Dioxide 24 Pending
BUN 11 Pending
Creatinine 0.8 Pending
Glucose 77 Pending
Calcium 8.6 Pending
Vital Signs:
Vital Signs
Temp Pulse Resp BP Pulse Ox
97.9 F 61 16 143/62 96
05/07/25 11:19 05/07/25 11:19 05/07/25 11:19 05/07/25 11:19 05/07/25 11:19
I&O
05/06/25 05/07/25 05/08/25
06:59 06:59 06:59
Intake Total 1480 / 1480
Output Total 700 / 700
Balance 780 / 780
Review of Systems
-
History Source: Patient
All other systems: Reviewed and negative
Physical Exam
-
General: No Apparent Distress
[2025-05-07] MEDS: LOVENOX 40 MG SC (17:01)
[2025-05-07] MEDS: ASPIR LOW (ENTERIC COATED) 81 MG PO (17:01)
[2025-05-07 18:32] LABS: Blood Urea Nitrogen 16 mg/dl (7-17); Calcium 9.1 mg/dl (8.4-10.2); Carbon Dioxide 25 mmol/L (22-30); Chloride 106 mmol/L (98-107); Estimated Creatinine Clearance 47 ml/min; Glucose 83 mg/dl (70-99); Potassium 5.1 mmol/L (3.5-5.1); Sodium 134 mmol/L (135-145); eGFR > 60.00
[2025-05-08 03:00] VITALS: BP 133/62
[2025-05-08 06:00] VITALS: BP 139/76; BP 157/88; BP 167/90; PULSE 53; PULSE 64; PULSE 69
[2025-05-08 07:35] VITALS: BP 154/69
[2025-05-08 07:54] LABS: Blood Urea Nitrogen 16 mg/dl (7-17); Calcium 8.7 mg/dl (8.4-10.2); Carbon Dioxide 25 mmol/L (22-30); Chloride 106 mmol/L (98-107); Estimated Creatinine Clearance 42 ml/min; Glucose 82 mg/dl (70-99); Potassium 4.1 mmol/L (3.5-5.1); Sodium 135 mmol/L (135-145); eGFR > 60.00
--- NOTE | 2025-05-08 10:41 | W.DCSUMMARY ---
Discharge Summary
Discharge Data
Date of Admission: 05/07/25
Date of Discharge: 05/08/25
Total time spent discharging patient (in min): 40
-
Pending Results: No
Hospital Course
Ms. Ramírez is a 79-year-old female with medical history of hypertension, aortic dissection (status post repair), and A-fib who presented with abdominal discomfort with nausea and vomiting. She also had an episode of near syncope and collapse at
home. She has had recent outpatient treatment for urinary tract infection. In the ED she was found to be normotensive and mildly bradycardic with a heart rate in the 40s to 50s, saturating appropriately on room air and afebrile. Labs revealed a
serum sodium of 124 (baseline appears to be 140), with no leukocytosis. She was given IV fluids and admitted for further evaluation and management.
IV fluids were discontinued and she was placed on a moderate fluid restriction. She was evaluated and treated by nephrology while inpatient. Her serum sodium levels improved and eventually resolved within normal limits. She initially had some
abdominal and urinary discomfort which resolved. She was able to tolerate a regular diet. Her mental status also resolved to her baseline and she was able to ambulate appropriately without assistance. She was evaluated by cardiology for
bradycardia who felt her bradycardia was chronic and mild, not significant enough to be contributing to her presenting symptoms. At time of hospital discharge she was medically stable. She will need repeat lab work in 1 week to monitor her serum
sodium levels. She should continue fluid restriction of approximately 33 ounces per day at home. She will need close follow-up with her primary care physician.
General: No Apparent Distress, Comfortable and Conversant
HEENT: NormoCephalic, Moist mucous membranes, Atraumatic
Respiratory: Clear and Non Labored Respirations
Cardiac: S1/S2 and Regular Rhythm; No Rub or Gallop
GI: Soft, Non Tender, Non Distended and Normal Bowel Sounds
Musculoskeletal: No Edema, no deformity
Skin: Warm and dry
: NO Carey
Neuro: Awake, Alert, Nonfocal/grossly intact
Psych: Calm and Intact Judgment/Insight
Discharge Plan
-
Patient Disposition: Home (Routine Discharge)
Discharge Diagnosis/Procedures: Hyponatremia
Diet: Restrict fluids to 48 oz
Activity Restrictions/Additional Instructions:
Ms. Ramírez is a 79-year-old female with medical history of hypertension, aortic dissection (status post repair), and A-fib who presented with abdominal discomfort with nausea and vomiting. She also had an episode of near syncope and collapse at
home. She has had recent outpatient treatment for urinary tract infection. In the ED she was found to be normotensive and mildly bradycardic with a heart rate in the 40s to 50s, saturating appropriately on room air and afebrile. Labs revealed a
serum sodium of 124 (baseline appears to be 140), with no leukocytosis. She was given IV fluids and admitted for further evaluation and management.
IV fluids were discontinued and she was placed on a moderate fluid restriction. She was evaluated and treated by nephrology while inpatient. Her serum sodium levels improved and eventually resolved within normal limits. She initially had some
abdominal and urinary discomfort which resolved. She was able to tolerate a regular diet. Her mental status also resolved to her baseline and she was able to ambulate appropriately without assistance. She was evaluated by cardiology for
bradycardia who felt her bradycardia was chronic and mild, not significant enough to be contributing to her presenting symptoms. At time of hospital discharge she was medically stable. She will need repeat lab work in 1 week to monitor her serum
sodium levels. She should continue fluid restriction of approximately 33 ounces per day at home. She will need close follow-up with her primary care physician.
Referrals:
Angélica Molina PA-C [Specified Professional Personl, Cardiology] - 05/30/25 9:40 am
Referral Note: You have a cardiology follow-up appointment at the [place] office with Dr. Greenberg's physician food and beverage assistant, Angélica. Please call with questions
UNKNOWN - PT DOES,NOT KNOW [Family Provider]
Prescriptions:
Continued
ascorbic acid (vitamin C) [Vitamin C] 500 MG tablet
500 mg PO BID
multivitamin with folic acid [Tab-A-Tripp] 1 TABLET tablet
1 tab PO DAILY
meclizine 25 mg Tablet
25 mg PO TID PRN (Reason: vertigo)
cholecalciferol (vitamin D3) 25 mcg (1,000 unit) Tablet
25 mcg PO DAILY
losartan 50 mg Tablet
50 mg PO DAILY
aspirin 81 mg Tablet,Delayed Release (Dr/Ec)
81 mg PO QPM
acetaminophen [Tylenol Extra Strength] 500 mg Tablet
1,000 mg PO Q6HPRN PRN (Reason: headache)
Systane (PF) 0.4-0.3 % Dropperette
1 drp BOTH EYES BIDPRN PRN (Reason: dry eyes)
Metamucil 3.4 gram/5.4 gram Powder
1 tsp PO DAILY
docusate sodium [Colace] 100 mg Capsule
100 mg PO DAILY
Discharge Orders:
Discharge Patient (As Directed); Ordered 05/08/25
Ordered By: Rainer Bates
Discharge Date and Time
Print Language: [place]
[2025-05-08 10:58] VITALS: BP 133/66
--- NOTE | 2025-05-08 12:18 | W.PN.NEPH.PH ---
Today's Communication / Plan
-
see plan
Assessment/Plan
-
IMP:
Hyponatremia
Syncope
UTI
Aortic Dissection
Paroxysmal Atrial Fibrillation
Essential Hypertension
Hyperlipidemia
Plan:
A/w n/v, lorenzo syncope in ER
Hyponatremia likely hypovolemia
U osmo 275, U na high 91 but post IVF
TSH and cortisol is normal
sodium normal and no FR needed currently
ok for d/c
BMP in 1week with PCP
d/w pt
-
-
Date of Service: May 08, 2025
CC / HPI / ROS
-
Chief Complaint:
hypoantremia
History of Present Illness:
sodium better at 135
bp stable
Review of Systems:
no cp or sob
improving dysuria
Labs
-
Labs:
WBC 5.0 10^3/uL (4.8-10.8) 05/07/25 07:48
RBC 3.51 10^6/uL (4.20-5.40) L 05/07/25 07:48
Hgb 11.6 g/dL (12.0-16.0) L 05/07/25 07:48
Hct 33.6 % (37.0-47.0) L 05/07/25 07:48
Plt Count 181 10^3/uL (130-400) 05/07/25 07:48
Sodium 135 mmol/L (135-145) 05/08/25 06:50
Potassium 4.1 mmol/L (3.5-5.1) 05/08/25 06:50
Chloride 106 mmol/L (98-107) 05/08/25 06:50
Carbon Dioxide 25 mmol/L (22-30) 05/08/25 06:50
BUN 16 mg/dl (7-17) 05/08/25 06:50
Creatinine 0.9 mg/dL (0.6-1.0) 05/08/25 06:50
eGFR > 60.00 05/08/25 06:50
Glucose 82 mg/dl (70-99) 05/08/25 06:50
Calcium 8.7 mg/dl (8.4-10.2) 05/08/25 06:50
Albumin 4.3 g/dl (3.5-5.0) 05/06/25 18:50
Physical Exam
-
Vital Signs:
Vital Signs
Temp Pulse Resp BP Pulse Ox
98.1 F 56 16 133/66 98
05/08/25 10:58 05/08/25 10:58 05/08/25 10:58 05/08/25 10:58 05/08/25 10:58
Cardiovascular:: Regular rate and rhythm
Respiratory:: Bilateral: CTA
Lung Excursion:: Normal
Abdomen:: Nontender and Soft
Extremity Edema:: None: Bilateral:
Carey Catheter: No
[2025-05-08 13:30] VITALS: BP 169/79
== END 2025-05-08 14:07 | disposition home or self-care (01) | DRG 641 ==
LOC: 3 WEST ACU 00:13
PROVIDERS: Emergency Medicine; ADMITTING PHYSICIAN Internal Medicine; ATTENDING PHYSICIAN Internal Medicine; EMERGENCY PHYSICIAN Emergency Medicine; OTHER PHYSICIAN Internal Medicine; OTHER PHYSICIAN Internal Medicine Cardiovascular Disease
DX: E87.1 Hypo-osmolality and hyponatremia (principal); N39.0 Urinary tract infection, site not specified; I10 Essential (primary) hypertension; I48.0 Paroxysmal atrial fibrillation; Z87.891 Personal history of nicotine dependence; K43.9 Ventral hernia without obstruction or gangrene; Z88.2 Allergy status to sulfonamides; Z88.5 Allergy status to narcotic agent; Z88.1 Allergy status to other antibiotic agents; Z79.82 Long term (current) use of aspirin; E86.1 Hypovolemia; E78.00 Pure hypercholesterolemia, unspecified; E86.0 Dehydration; F41.9 Anxiety disorder, unspecified; I25.10 Atherosclerotic heart disease of native coronary artery without angina pectoris; K21.9 Gastro-esophageal reflux disease without esophagitis; R32 Unspecified urinary incontinence; Z82.49 Family history of ischemic heart disease and other diseases of the circulatory system
CPT/HCPCS: 51798; 71275; 74174; 80048; 80053; 81003; 82533; 82570; 82962; 83605; 83735; 83930; 83935; 84300; 84443; 84484; 85025; 85027; 85610; 85730; 93005; 96361; 96374; 99285; Q9967